=== PATIENT | male | born 1960 | race Caucasian/White ===

== ENCOUNTER 2019-07-22 11:28 | Inpatient (IN) | payer MEDICARE, MEDICAID, OTHER, SELFPAY ==
[2019-07-22] VITALS (7 sets, daily range): BP systolic 135–152; BP diastolic 71–94; PULSE 81–106; RESP 16–18; TEMP 36.6–37.4; O2SAT 95–99; BMI 29.3
--- NOTE | 2019-07-22 11:41 | ED.VIS.GEN ---
History of Present Illness Chief Complaint: Substance Abuse Detail of Chief Complaint: Requesting detox from alcohol Informant: Patient Onset: - - Street of alcohol use since age of 14 Context: Gradual Onset Timing: Continuous Quality: Consumes 3 25 ounce beer cans a day Location: Home Current Severity: Moderate Maximum Severity: Moderate Worsened by: DUI past holiday Relieved by: Nothing Associated Symptoms: Patient states he is recluse Narrative: Patient is a 58-year-old male who lives alone and admits to drinking on average 325 ounce beer cans per day. He states he was doing well had not had a DUI per 25 years. He states this past holiday season he went out to [facility]. He was arrested for DUI. He contacted Kelsey at [facility] who recommended he come to the emergency department for detox and she would see him during his hospital stay. He is on disability. He has history of chronic leg pain. He was on Lyrica. He developed problems allergies to Lyrica and Neurontin. He also informed that he is a vet. He denies headache. He denies ocular, visual auditory symptoms. Denies trouble with speech or swallowing. He denies cardiac respirations. He denies GI symptoms and significantly denies black or maroon stool. Denies bruising easily. Prior similar symptoms: Yes Recent Illness/Hospitalization: No - Past Medical History (1) Alcoholism /alcohol abuse Status: Acute Past Medical History - Allergies and Home Meds Allergies/Adverse Reactions: Allergies gabapentin Allergy (Verified 07/22/19 11:29) Hives pregabalin [From Lyrica] Allergy (Verified 07/22/19 11:29) Hives Primary Care Physician: NOT,DEFINED [NON-STAFF] - Prior records reviewed: Yes Surgical History: noncontributory Lives: Alone Smoking Status: Former smoker Alcohol: Heavy Drugs: None Review of Systems General: Denies: Chills, Fever, Sweats Eyes: Denies: Visual changes - bilaterally, Blurred Vision - bilaterally, Diplopia ENT: Denies: Rhinorrhea, Sore throat Cardiovascular: Denies: Chest pain, Palpitations Respiratory: Denies: Dyspnea, Cough, Dyspnea on exertion Gastrointestinal: Denies: Abdominal pain, Nausea, Vomiting, Diarrhea, Constipation, Melena, Hematochezia Genitourinary: Denies: Dysuria, Hematuria, Frequency Musculoskeletal: Denies: Myalgias, Arthralgias, Neck pain, Back pain, Swelling, Extremity Pain Skin: Denies: Rash, Abrasions, Wounds Neurological: Denies: Headache, Weakness, Numbness Endocrine: Denies: Polyuria, Polydipsia Hematologic: Denies: Easy bruising, Easy bleeding Allergy: Denies: Uticaria Physical Exam Vital Signs/Narrative: Vital Signs Temp Pulse Resp BP Pulse Ox 07/22/19 11:30 98 F 89 16 152/86 H 98 Inital Vital Signs reviewed: Yes General: Well nourished, Well developed, Obese Head: Normocephalic, Atraumatic. Negative for: Trauma, Tenderness Eyes: Perrl, EOMI. Negative for: Pale conjunctiva, Scleral icterus ENT: Moist mucous membranes, No rhinorrhea Neck: Supple, Nontender Cardiovascular: Regular rate, Regular rhythm, No murmurs, Normal S1, Normal S2 Respiratory: No distress, CTA bilaterally, Chest nontender Abdomen: Soft, Nontender, Nondistended, Normal bowel sounds Rectal: Deferred Back: Nontender Extremities: Nontender, No edema Skin: Normal color, No rash, No Trauma. Negative for: Cyanosis, Diaphoresis, Jaundice Neurological: Alert, Oriented x3, Cranial nerves II-XII grossly intact, Normal Strength, Normal Sensation, Normal DTR - There is no clonus or Babinski sign. DTR 2+ and symmetric Psychological: Normal affect Diagnostic/Tx/Re-eval Laboratory Results 07/22/19 07/22/19 07/22/19 12:10 12:10 12:10 WBC 5.8 RBC 5.05 Hgb 15.6 Hct 46.5 MCV 92.1 MCH 30.9 MCHC 33.5 RDW Std Deviation 41.9 RDW Coeff of Maren 12.3 Plt Count 262 MPV 9.2 PT 13.2 INR 1.0 Sodium 136 Potassium 3.8 Chloride 103 Carbon Dioxide 25.0 Anion Gap 8 BUN 5 L Creatinine 0.70 Estim Creat Clear Calc 111.29 Est GFR (MDRD) Af Amer 148 Est GFR (MDRD) Non-Af 122 BUN/Creatinine Ratio 7.1 L Glucose 99 Calcium 9.0 Total Bilirubin 0.60 AST 53 H ALT 37 Alkaline Phosphatase 118 H Total Protein 7.6 Albumin 3.9 Globulin 3.7 Albumin/Globulin Ratio 1.1 Ethyl Alcohol 07/22/19 12:10 WBC RBC Hgb Hct MCV MCH MCHC RDW Std Deviation RDW Coeff of Maren Plt Count MPV PT INR Sodium Potassium Chloride Carbon Dioxide Anion Gap BUN Creatinine Estim Creat Clear Calc Est GFR (MDRD) Af Amer Est GFR (MDRD) Non-Af BUN/Creatinine Ratio Glucose Calcium Total Bilirubin AST ALT Alkaline Phosphatase Total Protein Albumin Globulin Albumin/Globulin Ratio Ethyl Alcohol 197.0 Blood work is remarkable and alcohol of 197. He does not have a coagulopathy. Liver enzymes are essentially unremarkable. - Medical Decision Making Appropriate tests were obtained to assess for liver dysfunction, anemia electrolyte abnormality. ED Disposition - Plan for ED Patient: Disposition: Home or Assisted Living Diagnosis: Alcoholism /alcohol abuse, Admitted to substance misuse detoxification center Referrals: NOT,DEFINED [NON-STAFF] -
--- NOTE | 2019-07-22 11:53 | CM.ED ---
Addendum entered by Heydi Nazario 07/22/19 12:35: Confirming with patient that patient did in fact speak with Kelsey at [facility] and is seeking detox from Alcohol. Original Note: Social Work Telephone call to Kelsey at [facility] to confirm patient arriving to the ED, voicemail left requesting a return phone call for patient details. Miguel KAUR, KEVIN
[2019-07-22 12:28] LABS: Hematocrit 46.5 % (40-54); Hemoglobin 15.6 g/dL (13.0-16.5); Mean Corp Hgb Conc 33.5 g/dL (32-36); Mean Corpuscular Hgb 30.9 pg (27.0-32.0); Mean Corpuscular Volume 92.1 fL (80-94); Mean Platelet Vol. 9.2 fl (6.2-12.0); Platelet Count 262 K/mm3 (150-450); RBC Distribution Width CV 12.3 % (11.6-14.6); RBC Distribution Width SD 41.9 fl (35.1-43.9); Red Blood Count 5.05 M/mm3 (4.6-6.2); White Blood Count 5.8 K/mm3 (4.4-11.0)
--- NOTE | 2019-07-22 12:34 | ED.RN ---
LEFT A MESSAGE WITH [facility] [phone] EXT. [phone]
[2019-07-22 12:46] LABS: ALB/GLOB Ratio 1.1 RATIO (0.9-2.4); AST(SGOT) 53 U/L (15-37); Alanine Aminotransfer ALT/SGPT 37 U/L (16-61); Albumin, Serum 3.9 g/dL (3.2-5.0); Alkaline Phosphatase 118 U/L (45-117); Anion Gap 8 (5-15); BUN 5 mg/dL (7-18); BUN/Creat Ratio 7.1 RATIO (10-20); Chloride 103 mmol/L (98-107); EST Glomerular Filtration Rate 122 mL/min (>60); Est Glom Filt Rate - Afr Amer 148 mL/min (>60); Estimated Creatinine Clearance 111.29 ml/min; Globulin 3.7 g/dL (2.2-4.2); Glucose 99 mg/dL (74-106); Potassium 3.8 mmol/L (3.5-5.1); Protein, Total 7.6 g/dL (6.4-8.2); Prothrombin Time (Protime)PT. 13.2 SECONDS (11.7-14.9); Sodium Level 136 mmol/L (136-145)
--- NOTE | 2019-07-22 14:19 | HP.PCM_ITS ---
Problem List (1) Alcohol withdrawal Status: Acute Qualifiers: Complication of substance-induced condition: with perceptual disturbance Qualified Code(s): F10.232 - Alcohol dependence with withdrawal with perceptual disturbance (2) Tobacco use Status: Chronic (3) Anxiety Status: Chronic (4) Obesity Status: Chronic Qualifiers: Obesity type: due to excess calories Obesity classification: adult class 1 (BMI 30 - 34.9) Serious obesity comorbidity presence: unspecified whether serious comorbidity present Body mass index: BMI 30.0-30.9 Qualified Code(s): E66.09 - Other obesity due to excess calories; Z68.30 - Body mass index (BMI) 30.0-30.9, adult (5) Chronic pain syndrome Status: Chronic History of Present Illness Date of Admission: 07/22/19 Chief Complaint: Acute EtOH Withdrawal The patient is a 58 y/o M w/ PMHx: Tobacco use, Chronic leg pain, Anxiety, EtOH Abuse (at last 3-25 ounce cans beer daily), Hx DUI now x 2 most recently this past holiday with 180 recommendation for evaluation at the [facility] ED for detoxification who actively now presents to the [facility] ED on 07/22/19 w/ noted acute EtOH withdrawal, onset starting on day of ED presentation following last EtOH intake on day of ED presentation at 7 am with onset of nausea, tremors, agitation, tactile disturbances. Patient interested in attaining sober status and notes he recently obtained his 2nd DUI. He notes the first was remotely and he drank heavily and drove during the recent holidays. Work-up in the ED included T 98, heart rate 89, BP 152/86, respiratory rate 16, 98% on room air, unremarkable CBC, unremarkable coags, CMP with AST/ALT 53/37, alk phos 118 alcohol level 197. In the ED patient ministered no medications. Past Medical History Past Medical History (Chronic Problems): Chronic Problems Tobacco use (Chronic) Anxiety (Chronic) Obesity (Chronic) Chronic pain syndrome (Chronic) Allergies gabapentin Allergy (Verified 07/22/19 11:29) Hives pregabalin [From Lyrica] Allergy (Verified 07/22/19 11:29) Hives Home Medications: Ambulatory Orders Medication Instructions Recorded Albuterol IH (ProAir) [Proair Hfa] 2 puff INHALATION Q4H PRN 07/22/19 Buspirone HCl 10 mg PO BID 07/22/19 Multivitamins,Therapeutic 1 tab PO DAILY 07/22/19 [Multivitamin] Oxycodone HCl 10 mg PO Q6H PRN PRN 07/22/19 Surgical History: - - Right arm surgery. Psychiatric History: Anxiety Lives: Alone Smoking Status: Current every day smoker - Patient with ongoing cigarette tobacco usage of approximately 1 pack/day. Tobacco Use: Cigarettes Alcohol: Heavy - Patient drinks usually at least 3, 25 ounce beers daily. Drugs: None - *Family History Maternal History Items: - - Patient denies any market maternal or paternal family history including heart disease, diabetes, cancer. Paternal History Items: - - Patient denies any market maternal or paternal family history including heart disease, diabetes, cancer. Review of Systems Constitutional: Reports: Malaise, Weakness, Fatigue. Denies: Anorexia, Chills, Fever, Weight Change HEENT: Denies: Head Aches, Sinus Congestion, Sinus Drainage Cardiovascular: Denies: Chest Pain, Palpitations Respiratory: Denies: Cough, Shortness of breath at rest, Sputum production Gastrointestinal: Denies: Abdominal Pain, Nausea, Vomiting Genitourinary: Denies: Dysuria Musculoskeletal: Reports: Joint Pain, Leg Pain. Denies: Joint Tenderness Skin: Denies: Rash, Wounds Neurological: Reports: Tremor. Denies: Focal weakness, Numbness, Tingling Psychiatric: Reports: Anxiety. Denies: Depression, Homicidal Ideations, Suicidal Ideations Hematologic/ Lymphatic: Reports: Easy Bruising, Easy Bleeding VTE Information - Inpt Only VTE Present on Admission: No VTE Mechan Device Prophylaxis: None VTE Pharm Prophylaxis ordered?: No Reason prophylaxis not ordered:: Treatment Not Indicated Patient Problems: Active and Suspected Problems Alcoholism /alcohol abuse (Acute) Admitted to substance misuse detoxification center (Acute) Alcohol withdrawal (Acute) Subjective: Seated upright in the ED bed, mildly fatigued appearance, irritable, tremors present, no acute distress. Objective: Physical Examination: General: awake, alert, oriented x 3 and currently cooperative, seated upright in the ED bed, mildly irritable, mild tremors present. Skin: normal color, turgor, no icterus, cyanosis. HEENT: AT/NC, EOMI, PERRLA, mildly dry MM, no carotid bruits or JVD noted. Lungs: CTA bilaterally, moderate effort, moderate decrease BL bases, no rales, ronchi or wheezing. Heart: Mildly tachycardic with regular rhythm; no gallop, rub audible. Abdomen: soft, obese, NTTP, ND, normal BS, unable to discern any HM. Extremities: no cyanosis, clubbing, or edema. Neurological: patient awake, alert, oriented x 3; cognitive function appears suspected baseline intact; pupils equally reactive to light and accomodation; cranial nerves II-XII grossly normal, moving all 4 extremities, no focal deficits, strength mild to moderately global decrease secondary to acute presentation. Psychiatric: affect appears irritable, no acute evidence of depressive or anxiety feelings. - Physical Exam Vitals/I&O's: Vital Signs Temp Pulse Resp BP Pulse Ox 98 F 84 16 138/77 H 98 07/22/19 11:30 07/22/19 13:39 07/22/19 13:39 07/22/19 13:39 07/22/19 13:39 Oxygen Delivery Method Room Air Weight: 193 lb Body Mass Index (BMI) 29.3 Laboratory Results 07/22/19 12:10: WBC 5.8, RBC 5.05, Hgb 15.6, Hct 46.5, MCV 92.1, MCH 30.9, MCHC 33.5, RDW Std Deviation 41.9, RDW Coeff of Maren 12.3, Plt Count 262, MPV 9.2 07/22/19 12:10: PT 13.2, INR 1.0 07/22/19 12:10: Sodium 136, Potassium 3.8, Chloride 103, Carbon Dioxide 25.0, Anion Gap 8, BUN 5 L, Creatinine 0.70, Estim Creat Clear Calc 111.29, Est GFR (MDRD) Af Amer 148, Est GFR (MDRD) Non-Af 122, BUN/Creatinine Ratio 7.1 L, Glucose 99, Calcium 9.0, Total Bilirubin 0.60, AST 53 H, ALT 37, Alkaline Phosphatase 118 H, Total Protein 7.6, Albumin 3.9, Globulin 3.7, Albumin/Globulin Ratio 1.1 07/22/19 12:10: Ethyl Alcohol 197.0 Assessment/Plan All Active Problems Alcoholism /alcohol abuse (Acute) Admitted to substance misuse detoxification center (Acute) Alcohol withdrawal (Acute) The patient is a 58 y/o M w/ PMHx: Chronic leg pain, Anxiety, EtOH Abuse, Hx DUI now x 2 most recently this past holiday with 180 recommendation for evaluation at the [facility] ED for detoxification who actively now presents to the [facility] ED on 07/22/19 w/ noted acute EtOH withdrawal. 1. Acute EtOH Withdrawal: Will admit to [facility], routine labs obtained in the ED, ethyl alcohol level upon presentation 197 but functional, ambulatory and oriented, will initiate on phenobarbital taper protocol with PRN breakthrough crossover CIWA with Ativan in addition to PRN agents including Bentyl, Vistaril, IV fluids, antiemetics, Tylenol. Will consult case management and continue with [facility] services to assist in patient successful alcohol detoxification as well as for assistance for transition to next level of rehabilitation care. Mag, phos pending. 2. Anxiety: We will continue patient home BuSpar regimen although may need to hold if sedate given acute presentation with an sedated regimen. 3. Chronic pain syndrome: We will continue patient home chronic oxycodone regimen. 4. GERD: Maintain on famotidine. 5. Obesity: Weight loss and lifestyle changes encouraged. 6. Tobacco Abuse: Encouraged cessation, inpatient consultation per RT, NR if desired. 7. DVT prophylaxis: Low risk, encourage ambulation. Code Visit Inpatient E&M: 16565 Init Hosp L3
--- NOTE | 2019-07-22 17:12 | NURSING ---
Pt refusing to have IV placed. Dr Miner aware.
[2019-07-22 17:20] LABS: Magnesium 2.1 mg/dL (1.6-2.6); Phosphorus 2.3 mg/dL (2.5-4.9)
[2019-07-22] MEDS: Phenobarbital 32.4 MG Tablet PO ×2 (17:33→21:45)
[2019-07-22] MEDS: Methocarbamol 750 MG Tablet PO (17:34)
[2019-07-22] MEDS: Folic Acid 1 MG Tablet PO (17:34)
[2019-07-22] MEDS: Multivitamins,Ther W-Minerals Tablet 1 TABLET PO (17:34)
[2019-07-22] MEDS: oxyCODONE 5 MG Tablet 10 MG PO (17:34)
[2019-07-22] MEDS: Thiamine Hydrochloride 100 MG Tablet PO (18:42)
[2019-07-22 19:21] LABS: Bedside Glucose 124 mg/dL (70-110)
[2019-07-22] MEDS: LORazepam 1 MG Tablet 2 MG PO (20:02)
[2019-07-22] MEDS: Ibuprofen 600 MG Tablet PO (20:02)
--- NOTE | 2019-07-22 20:07 | CM.ED ---
Social Work Telephone call from Kelsey at [facility]. Kelsey reporting plan to come and complete assessment with patient tomorrow. Voicemail left for VINCENT Pink, JUAN Nazario MSW, KEVIN
[2019-07-22] MEDS: hydrOXYzine PAM 25 MG Capsule 50 MG PO (21:36)
[2019-07-22] MEDS: busPIRone 5 MG Tablet 10 MG PO (21:36)
[2019-07-22] MEDS: traZODone 50 MG Tablet PO (21:36)
[2019-07-22] MEDS: Famotidine 20 MG Tablet PO (21:36)
[2019-07-22] MEDS: Na Biphos/Potassium Phosphate PACKET 1 PACKET PO (21:45)
[2019-07-22 22:21] LABS: Bacteria 0 SEEN /hpf (None Seen); Mucous, Urine 0 SEEN /hpf (<or=2+); Red Blood Cells-Urine 0 SEEN /hpf (0-5); White Blood Cells 0 SEEN /hpf (0-5)
[2019-07-22 22:23] LABS: Color, Urine Yellow (Yellow); Glucose, Dipstick Normal (Normal); Ketone-Dipstick Negative (Negative); Leukocyte Esterase-Dipstick Negative /ul (Negative); Nitrite-Dipstick Negative (Negative); Occult Blood-Urine Negative /ul (Negative); Protein-Dipstick Negative (Negative); Urine Bilirubin Dipstick Negative (Negative); Urine Clarity Sl. Cloudy (Clear); Urine Urobilinogen Normal (Normal)
[2019-07-22 22:29] LABS: Squamous Epithelial Cells - UA 0-5 SEEN /hpf (0-5)
[2019-07-23] MEDS: Methocarbamol 750 MG Tablet PO ×2 (00:36→09:32)
[2019-07-23] MEDS: LORazepam 1 MG Tablet 2 MG PO ×2 (00:36→09:32)
[2019-07-23] MEDS: Tamsulosin HCl 0.4 MG Capsule PO ×2 (00:36→16:41)
[2019-07-23] MEDS: traZODone 50 MG Tablet PO ×2 (01:33→21:43)
[2019-07-23] MEDS: Phenobarbital 32.4 MG Tablet PO ×6 (01:35→21:03)
[2019-07-23 01:38] VITALS: BP 95/67; PULSE 97; RESP 18; TEMP 36.8; O2SAT 97
[2019-07-23] MEDS: hydrOXYzine PAM 25 MG Capsule 50 MG PO ×2 (05:12→13:27)
[2019-07-23] MEDS: Ibuprofen 600 MG Tablet PO (05:12)
[2019-07-23 09:19] VITALS: BP 128/82; PULSE 100; RESP 16; TEMP 36.4; O2SAT 97
[2019-07-23] MEDS: Na Biphos/Potassium Phosphate PACKET 1 PACKET PO ×4 (09:31→21:43)
[2019-07-23] MEDS: Famotidine 20 MG Tablet PO ×2 (09:31→21:43)
[2019-07-23] MEDS: Thiamine Hydrochloride 100 MG Tablet PO ×2 (09:32→16:41)
[2019-07-23] MEDS: Multivitamins,Ther W-Minerals Tablet 1 TABLET PO (09:32)
[2019-07-23] MEDS: Folic Acid 1 MG Tablet PO (09:32)
[2019-07-23] MEDS: Nystatin Powder 15gm Bottle 1 APPLIC TOPICAL ×2 (09:33→21:45)
[2019-07-23] MEDS: busPIRone 5 MG Tablet 10 MG PO ×2 (10:22→21:43)
--- NOTE | 2019-07-23 11:26 | ADDICTION ---
This engineering writer met with Mr. Franco to complete [facility] biopsychosocial assessment/ASAM assessment. Client signed CHRISTINA to allow [facility] and [facility] communication regarding his care. Mr. Franco meets DSM 5 criteria for Alcohol Use Disorder, Severe and ASAM criteria for medical withdrawal management. This engineering writer will send assessment via fax for hospital staff to add to client's chart.
--- NOTE | 2019-07-23 11:46 | PN_ITS ---
Patient Problems: Active and Suspected Problems Alcoholism /alcohol abuse (Acute) Admitted to substance misuse detoxification center (Acute) Alcohol withdrawal (Acute) Subjective: Patient was seen and examined today, he does not complain of any tremor or restlessness or nervousness. Patient was seen by 180 today in consultation for outpatient services when he is discharged. - Physical Exam Vitals/I&O's: Vital Signs Temp Pulse Resp BP Pulse Ox 97.5 F L 100 16 128/82 H 97 07/23/19 09:19 07/23/19 09:19 07/23/19 09:19 07/23/19 09:19 07/23/19 09:19 Oxygen Delivery Method Room Air Weight: 89.675 kg Body Mass Index (BMI) 30.0 Intake and Output for Last 24 Hours 07/21/19 07/22/19 07/23/19 23:59 23:59 23:59 Intake Total 3800 / 3800 800 / 800 Output Total 200 / 200 Balance 3600 / 3600 800 / 800 General: Alert, Oriented x3, Cooperative, No apparent distress, Well developed, Well nourished HEENT: Atraumatic, PERRLA, EOMI, Normocephalic Oral: Moist Mucosa Neck: Supple, No JVD, Trachea Midline, Thyroid Normal Size and Texture Lungs: Clear to auscultation, Normal air movement, No rhonchi, No wheeze, No rales Cardiovascular: Regular rate, Regular Rhythm, Normal S1, Normal S2, No murmurs, No Ectopic Activity, PMI Normal, No rub noted, No Gallop Abdomen: Bowel Sounds Present, Soft, Non Tender, Non-Distended Extremities: No clubbing, No cyanosis, No edema, Capillary Refill Less than 3 Seconds Skin: No rashes, No breakdown Musculoskeletal: No Tenderness to Palpation of Joints or Extremities Neurological: Cranial nerves II-XII grossly intact, Neuro grossly intact, Sensory exam intact to light touch and pain, Coordination normal Psych/Mental Status: Normal Affect, Appropriate, Alert and oriented to time, place, person, mood and affect Laboratory Results 07/22/19 12:10: WBC 5.8, RBC 5.05, Hgb 15.6, Hct 46.5, MCV 92.1, MCH 30.9, MCHC 33.5, RDW Std Deviation 41.9, RDW Coeff of Maren 12.3, Plt Count 262, MPV 9.2 07/22/19 12:10: PT 13.2, INR 1.0 07/22/19 12:10: Sodium 136, Potassium 3.8, Chloride 103, Carbon Dioxide 25.0, Anion Gap 8, BUN 5 L, Creatinine 0.70, Estim Creat Clear Calc 111.29, Est GFR (MDRD) Af Amer 148, Est GFR (MDRD) Non-Af 122, BUN/Creatinine Ratio 7.1 L, Glucose 99, Calcium 9.0, Total Bilirubin 0.60, AST 53 H, ALT 37, Alkaline Phosphatase 118 H, Total Protein 7.6, Albumin 3.9, Globulin 3.7, Albumin/Globulin Ratio 1.1 07/22/19 12:10: Ethyl Alcohol 197.0 07/22/19 12:10: Phosphorus 2.3 L, Magnesium 2.1 07/22/19 18:53: POC Glucose 124 H 07/22/19 21:50: Urine Color Yellow, Urine Clarity Sl. Cloudy, Urine pH 7.0, Ur Specific Leonard 1.010, Urine Protein Negative, Urine Glucose (UA) Normal, Urine Ketones Negative, Urine Occult Blood Negative, Urine Nitrite Negative, Urine Bilirubin Negative, Urine Urobilinogen Normal, Ur Leukocyte Esterase Negative, Urine RBC 0 SEEN, Urine WBC 0 SEEN, Ur Squamous Epith Cells 0-5 SEEN, Urine Bacteria 0 SEEN, Urine Mucus 0 SEEN Current Medications Acetaminophen (Tylenol) 500 mg PO Q4H PRN PRN PRN Reason: Temp > 100.4 F Al Hydroxide/Mg Hydroxide (Mylanta Ii) 30 ml PO Q6H PRN PRN PRN Reason: dyspesia Albuterol Sulfate (Ventolin Aerosols) 2.5 mg INHALATION Q2H PRN PRN PRN Reason: Shortness of Breath/Wheezing Bisacodyl (Dulcolax) 10 mg RECTAL DAILY PRN PRN Reason: Constipation Buspirone HCl (Buspar) 10 mg PO BID [facility] Last Admin: 07/23/19 10:22 Dose: 10 mg Documented by: Dicyclomine HCl (Bentyl) 20 mg PO Q6H PRN PRN PRN Reason: abdominal discomfort Famotidine (Pepcid) 20 mg PO BID [facility] Last Admin: 07/23/19 09:31 Dose: 20 mg Documented by: Folic Acid (Folic Acid) 1 mg PO DAILYCM [facility] Stop: 07/25/19 08:01 Last Admin: 07/23/19 09:32 Dose: 1 mg Documented by: Glucagon () 1 mg IM .X1 PRN PRN Reason: Hypoglycemia Hydroxyzine Pamoate (Vistaril Pamoate Capsule) 50 mg PO Q6H PRN PRN PRN Reason: Mild Anxiety (score 1/3) Last Admin: 07/23/19 05:12 Dose: 50 mg Documented by: Dextrose (Dextrose 10%-Water) 250 mls @ 999 mls/hr IV .Q16M PRN; Protocol PRN Reason: HYPOGLYCEMIA Ibuprofen (Motrin) 600 mg PO Q8H PRN PRN PRN Reason: Pain Score 1-5/10 Last Admin: 07/23/19 05:12 Dose: 600 mg Documented by: Loperamide HCl (Imodium) 2 - 4 mg PO UD PRN PRN Reason: LOOSE STOOLS Lorazepam (Ativan) 2 mg PO Q2H PRN PRN; Protocol PRN Reason: CIWA score > 8 but <15 Last Admin: 07/23/19 09:32 Dose: 2 mg Documented by: Lorazepam (Ativan) 2 mg PO UD PRN; Protocol PRN Reason: CIWA score >/=15. Lorazepam (Ativan) 2 mg IV Q2H PRN PRN; Protocol PRN Reason: CIWA score > 8 but <15 Lorazepam (Ativan) 2 mg IV UD PRN; Protocol PRN Reason: CIWA score >/=15. Lorazepam (Ativan) 2 mg IV X1 PRN PRN Reason: Seizure Methocarbamol (Methocarbamol) 750 mg PO Q6H PRN PRN PRN Reason: Muscle Aches Last Admin: 07/23/19 09:32 Dose: 750 mg Documented by: Multivitamins/Minerals (Multivitamin With Minerals (Bkc)) [facility] Last Admin: 07/23/19 09:32 Dose: 1 tablet Documented by: Nicotine (Nicoderm Cq (Pbkc)) 21 mg TRANSDERM. DAILY [facility] Last Admin: 07/23/19 09:31 Dose: 21 mg Documented by: Nystatin (Mycostatin Powder) 1 applic TOPICAL BID [facility]; Protocol Last Admin: 07/23/19 09:33 Dose: 1 applicatio Documented by: Ondansetron HCl (Zofran Odt) 4 mg PO Q6H PRN PRN PRN Reason: NAUSEA Oxycodone HCl (Oxyir) 10 mg PO Q6H PRN PRN PRN Reason: Pain Score 1-10/FEVER Last Admin: 07/22/19 17:34 Dose: 10 mg Documented by: Phenobarbital (Phenobarbital) 97.2 mg PO Q4H [facility]; Taper Stop: 07/27/19 01:14 Last Admin: 07/23/19 09:32 Dose: 97.2 mg Documented by: Potassium Phos/Sodium Phos (Neutra-Phos Packet) 1 packet PO 4X/DAY [facility] Last Admin: 07/23/19 09:31 Dose: 1 packet Documented by: Senna (Senokot) 1 tablet PO QHS PRN PRN Reason: Constipation Sodium Chloride () 10 - 40 ml IV UD PRN PRN Reason: SALINE FLUSH Tamsulosin HCl (Flomax) 0.4 mg PO DAILY@1730 [facility] Last Admin: 07/23/19 00:36 Dose: 0.4 mg Documented by: Thiamine HCl (Vitamin B1) 100 mg PO BIDCM [facility] Stop: 07/25/19 08:01 Last Admin: 07/23/19 09:32 Dose: 100 mg Documented by: Trazodone HCl (Desyrel) 50 mg PO QHS [facility] Last Admin: 07/23/19 01:33 Dose: 50 mg Documented by: Medical Necessity - Tobacco Use Smoking Status: Current every day smoker Tobacco Use: Cigarettes Assessment/Plan All Active Problems Alcoholism /alcohol abuse (Acute) Admitted to substance misuse detoxification center (Acute) Alcohol withdrawal (Acute) #1 acute alcohol withdrawal-patient will continue on his present medications #2 alcoholism #3 chronic pain syndrome #4 chronic anxiety disorder-patient will remain on BuSpar Code Visit Inpatient E&M: 78939 Subs Hosp L2
--- NOTE | 2019-07-23 12:06 | CASEMGMT ---
Social Work Phone call from Kelsey at [facility] who states one of the [facility] nurses will come to see pt on Tuesday 07/25 for a face to face visit. Kelsey is uncertain if they can accept pt to their program due to comorbidities. Decision will be made on Friday after face to face is complete. JUAN Mazariegos
[2019-07-23 13:22] VITALS: BP 118/78; PULSE 98; RESP 16; TEMP 36.6; O2SAT 99
--- NOTE | 2019-07-23 14:16 | CASEMGMT ---
MARISEL PETERSON completed the [facility] decl[facility] and patient prefers to stay at [facility] and have MCR/primary insurance billed. MARISEL PETERSON [facility] with [facility]. MARISEL PETERSON provided patient with copy of signed form. Signed form filled in chart.
[2019-07-23 16:22] VITALS: BP 132/81; PULSE 83; RESP 20; TEMP 36.6; O2SAT 97
[2019-07-23] MEDS: oxyCODONE 5 MG Tablet 10 MG PO (16:41)
[2019-07-23 21:05] VITALS: BP 126/86; PULSE 95; RESP 20; TEMP 36.4; O2SAT 97
[2019-07-24 00:36] VITALS: BP 137/88; PULSE 93; RESP 18; TEMP 37.2; O2SAT 98
[2019-07-24] MEDS: Dicyclomine 10 MG Capsule 20 MG PO (00:44)
[2019-07-24] MEDS: Methocarbamol 750 MG Tablet PO ×2 (00:44→23:33)
[2019-07-24] MEDS: Phenobarbital 32.4 MG Tablet PO ×6 (01:23→21:14)
[2019-07-24 05:30] VITALS: BP 116/76; PULSE 78; RESP 18; TEMP 36.6; O2SAT 97
[2019-07-24 07:32] VITALS: O2SAT 94
[2019-07-24] MEDS: Na Biphos/Potassium Phosphate PACKET 1 PACKET PO ×4 (07:58→21:16)
[2019-07-24] MEDS: busPIRone 5 MG Tablet 10 MG PO ×2 (07:59→21:15)
[2019-07-24] MEDS: Multivitamins,Ther W-Minerals Tablet 1 TABLET PO (07:59)
[2019-07-24] MEDS: Folic Acid 1 MG Tablet PO (07:59)
[2019-07-24] MEDS: Famotidine 20 MG Tablet PO ×2 (07:59→21:15)
[2019-07-24] MEDS: Thiamine Hydrochloride 100 MG Tablet PO ×2 (07:59→16:00)
[2019-07-24] MEDS: Nystatin Powder 15gm Bottle 1 APPLIC TOPICAL ×2 (08:00→21:16)
[2019-07-24 09:52] VITALS: BP 113/79; PULSE 95; RESP 20; TEMP 36.5; O2SAT 99
--- NOTE | 2019-07-24 12:12 | PN_ITS ---
Patient Problems: Active and Suspected Problems Alcoholism /alcohol abuse (Acute) Admitted to substance misuse detoxification center (Acute) Alcohol withdrawal (Acute) Subjective: Patient was seen and examined today, he has no complaints of any nervousness, tremor, or diaphoresis. I have asked nursing today to allow the patient to walk in the caballero today, he has been in his room since admission. Objective: General: Alert, Oriented x3, Cooperative, No apparent distress, Well developed, Well nourished HEENT: Atraumatic, PERRLA, EOMI, Normocephalic Oral: Moist Mucosa Neck: Supple, No JVD, Trachea Midline, Thyroid Normal Size and Texture Lungs: Clear to auscultation, Normal air movement, No rhonchi, No wheeze, No rales Cardiovascular: Regular rate, Regular Rhythm, Normal S1, Normal S2, No murmurs, No Ectopic Activity, PMI Normal, No rub noted, No Gallop Abdomen: Bowel Sounds Present, Soft, Non Tender, Non-Distended Extremities: No clubbing, No cyanosis, No edema, Capillary Refill Less than 3 Seconds Skin: No rashes, No breakdown Musculoskeletal: No Tenderness to Palpation of Joints or Extremities Neurological: Cranial nerves II-XII grossly intact, Neuro grossly intact, Sensory exam intact to light touch and pain, Coordination normal Psych/Mental Status: Normal Affect, Appropriate, Alert and oriented to time, place, person, mood and affect - Physical Exam Vitals/I&O's: Vital Signs Temp Pulse Resp BP Pulse Ox 97.7 F L 95 20 H 113/79 99 07/24/19 09:52 07/24/19 09:52 07/24/19 09:52 07/24/19 09:52 07/24/19 09:52 Oxygen Delivery Method Room Air Weight: 89.675 kg Body Mass Index (BMI) 30.0 Intake and Output for Last 24 Hours 07/22/19 07/23/19 07/24/19 23:59 23:59 23:59 Intake Total 3800 / 3800 3200 / 3200 660 / 660 Output Total 200 / 200 1450 / 1450 300 / 300 Balance 3600 / 3600 1750 / 1750 360 / 360 Current Medications Acetaminophen (Tylenol) 500 mg PO Q4H PRN PRN PRN Reason: Temp > 100.4 F Al Hydroxide/Mg Hydroxide (Mylanta Ii) 30 ml PO Q6H PRN PRN PRN Reason: dyspesia Albuterol Sulfate (Ventolin Aerosols) 2.5 mg INHALATION Q2H PRN PRN PRN Reason: Shortness of Breath/Wheezing Bisacodyl (Dulcolax) 10 mg RECTAL DAILY PRN PRN Reason: Constipation Buspirone HCl (Buspar) 10 mg PO BID [facility] Last Admin: 07/24/19 07:59 Dose: 10 mg Documented by: Dicyclomine HCl (Bentyl) 20 mg PO Q6H PRN PRN PRN Reason: abdominal discomfort Last Admin: 07/24/19 00:44 Dose: 20 mg Documented by: Famotidine (Pepcid) 20 mg PO BID [facility], [facility] Last Admin: 07/24/19 07:59 Dose: 20 mg Documented by: [facility] Acid) [facility] Stop: 07/25/19 08:01 Last Admin: 07/24/19 07:59 Dose: 1 mg Documented by: Glucagon () 1 mg IM .X1 PRN PRN Reason: Hypoglycemia Hydroxyzine Pamoate (Vistaril Pamoate Capsule) 50 mg PO Q6H PRN PRN PRN Reason: Mild Anxiety (score 1/3) Last Admin: 07/23/19 13:27 Dose: 50 mg Documented by: Dextrose (Dextrose 10%-Water) 250 mls @ 999 mls/hr IV .Q16M PRN; Protocol PRN Reason: HYPOGLYCEMIA Ibuprofen (Motrin) 600 mg PO Q8H PRN PRN PRN Reason: Pain Score 1-5/10 Last Admin: 07/23/19 05:12 Dose: 600 mg Documented by: Loperamide HCl (Imodium) 2 - 4 mg PO UD PRN PRN Reason: LOOSE STOOLS Lorazepam (Ativan) 2 mg PO Q2H PRN PRN; Protocol PRN Reason: CIWA score > 8 but <15 Last Admin: 07/23/19 09:32 Dose: 2 mg Documented by: Lorazepam (Ativan) 2 mg PO UD PRN; Protocol PRN Reason: CIWA score >/=15. Lorazepam (Ativan) 2 mg IV Q2H PRN PRN; Protocol PRN Reason: CIWA score > 8 but <15 Lorazepam (Ativan) 2 mg IV UD PRN; Protocol PRN Reason: CIWA score >/=15. Lorazepam (Ativan) 2 mg IV X1 PRN PRN Reason: Seizure Methocarbamol (Methocarbamol) 750 mg PO Q6H PRN PRN PRN Reason: Muscle Aches Last Admin: 07/24/19 00:44 Dose: 750 mg Documented by: Multivitamins/Minerals (Multivitamin With Minerals (Bkc)) [facility] Last Admin: 07/24/19 07:59 Dose: 1 tablet Documented by: Nicotine (Nicoderm Cq (Pbkc)) 21 mg TRANSDERM. DAILY [facility] Last Admin: 07/24/19 07:58 Dose: 21 mg Documented by: Nystatin (Mycostatin Powder) 1 applic TOPICAL BID [facility], [facility]; Protocol Last Admin: 07/24/19 08:00 Dose: 1 applicatio Documented by: Ondansetron HCl (Zofran Odt) 4 mg PO Q6H PRN PRN PRN Reason: NAUSEA Oxycodone HCl (Oxyir) 10 mg PO Q6H PRN PRN PRN Reason: Pain Score 1-10/FEVER Last Admin: 07/23/19 16:41 Dose: 10 mg Documented by: Phenobarbital (Phenobarbital) 64.8 mg PO Q4H [facility], [facility]; Taper Stop: 07/27/19 01:14 Last Admin: 07/24/19 09:56 Dose: 64.8 mg Documented by: Potassium Phos/Sodium Phos (Neutra-Phos Packet) 1 packet PO 4X/DAY [facility] Last Admin: 07/24/19 07:58 Dose: 1 packet Documented by: Senna (Senokot) 1 tablet PO QHS PRN PRN Reason: Constipation Sodium Chloride () 10 - 40 ml IV UD PRN PRN Reason: SALINE FLUSH Tamsulosin HCl (Flomax) 0.4 mg PO DAILY@1730 [facility] Last Admin: 07/23/19 16:41 Dose: 0.4 mg Documented by: Thiamine HCl (Vitamin B1) [facility] Stop: 07/25/19 08:01 Last Admin: 07/24/19 07:59 Dose: 100 mg Documented by: Trazodone HCl (Desyrel) 50 mg PO QHS [facility] Last Admin: 07/23/19 21:43 Dose: 50 mg Documented by: Medical Necessity - Tobacco Use Smoking Status: Current every day smoker Tobacco Use: Cigarettes Assessment/Plan All Active Problems Alcoholism /alcohol abuse (Acute) Admitted to substance misuse detoxification center (Acute) Alcohol withdrawal (Acute) #1 acute alcohol withdrawal-patient will continue on his present medications #2 alcoholism-180 has talked to the patient, according to the patient, he will go there Friday after discharge. #3 chronic pain syndrome #4 chronic anxiety disorder-patient will remain on BuSpar I will increase the patient's activity level and have him walk in the caballero. Code Visit Inpatient E&M: 60952 Subs Hosp L2
[2019-07-24 15:58] VITALS: BP 128/77; PULSE 82; RESP 18; TEMP 36.8; O2SAT 97
[2019-07-24] MEDS: Tamsulosin HCl 0.4 MG Capsule PO (16:00)
[2019-07-24] MEDS: traZODone 50 MG Tablet PO (21:16)
[2019-07-24 21:19] VITALS: BP 132/88; PULSE 87; RESP 20; TEMP 36.7; O2SAT 97
[2019-07-24] MEDS: hydrOXYzine PAM 25 MG Capsule 50 MG PO (23:33)
[2019-07-25] VITALS (7 sets, daily range): BP systolic 120–141; BP diastolic 66–78; PULSE 80–87; RESP 14–18; TEMP 36.4–36.8; O2SAT 95–98
[2019-07-25] MEDS: Phenobarbital 32.4 MG Tablet PO ×4 (01:04→18:19)
[2019-07-25] MEDS: Famotidine 20 MG Tablet PO ×2 (09:01→22:09)
[2019-07-25] MEDS: Thiamine Hydrochloride 100 MG Tablet PO (09:02)
[2019-07-25] MEDS: Folic Acid 1 MG Tablet PO (09:02)
[2019-07-25] MEDS: Multivitamins,Ther W-Minerals Tablet 1 TABLET PO (09:02)
[2019-07-25] MEDS: Na Biphos/Potassium Phosphate PACKET 1 PACKET PO ×4 (09:06→22:09)
[2019-07-25] MEDS: busPIRone 5 MG Tablet 10 MG PO ×2 (09:06→22:09)
[2019-07-25] MEDS: Nystatin Powder 15gm Bottle 1 APPLIC TOPICAL ×2 (09:06→22:11)
[2019-07-25] MEDS: LORazepam 1 MG Tablet 2 MG PO (09:13)
[2019-07-25] MEDS: Methocarbamol 750 MG Tablet PO ×2 (09:13→20:14)
[2019-07-25] MEDS: oxyCODONE 5 MG Tablet 10 MG PO ×2 (09:13→18:20)
[2019-07-25] MEDS: Ibuprofen 600 MG Tablet PO (13:21)
--- NOTE | 2019-07-25 14:04 | PCM.PROGNOTE ---
Patient Problems: Active and Suspected Problems Alcoholism /alcohol abuse (Acute) Admitted to substance misuse detoxification center (Acute) Alcohol withdrawal (Acute) Subjective: Seen and examined today, he does not appear to be nervous or shaky at this time. Patient voices no complaints to this examiner - Physical Exam Vitals/I&O's: Vital Signs Temp Pulse Resp BP Pulse Ox 97.5 F L 80 14 124/78 H 98 07/25/19 13:13 07/25/19 13:13 07/25/19 13:13 07/25/19 13:13 07/25/19 13:13 Oxygen Delivery Method Room Air Weight: 89.675 kg Body Mass Index (BMI) 30.0 Intake and Output for Last 24 Hours 07/23/19 07/24/19 07/25/19 23:59 23:59 23:59 Intake Total 3200 / 3200 2660 / 3140 480 / 480 Output Total 1450 / 1450 2575 / 3225 800 / 800 Balance 1750 / 1750 85 / -85 -320 / -320 General: Alert, Oriented x3, Cooperative, No apparent distress, Well developed, Well nourished HEENT: Atraumatic, PERRLA, EOMI, Normocephalic Oral: Moist Mucosa Neck: Supple, No JVD, Trachea Midline, Thyroid Normal Size and Texture Lungs: Clear to auscultation, Normal air movement, No rhonchi, No wheeze, No rales Cardiovascular: Regular rate, Regular Rhythm, Normal S1, Normal S2, No murmurs, PMI Normal, No rub noted Abdomen: Bowel Sounds Present, Soft, Non Tender, Non-Distended Extremities: No clubbing, No cyanosis, No edema, Capillary Refill Less than 3 Seconds Skin: No rashes, No breakdown Musculoskeletal: No Tenderness to Palpation of Joints or Extremities Neurological: Cranial nerves II-XII grossly intact, Neuro grossly intact, Sensory exam intact to light touch and pain Psych/Mental Status: Normal Affect, Appropriate, Alert and oriented to time, place, person, mood and affect Current Medications Acetaminophen (Tylenol) 500 mg PO Q4H PRN PRN PRN Reason: Temp > 100.4 F Al Hydroxide/Mg Hydroxide (Mylanta Ii) 30 ml PO Q6H PRN PRN PRN Reason: dyspesia Albuterol Sulfate (Ventolin Aerosols) 2.5 mg INHALATION Q2H PRN PRN PRN Reason: Shortness of Breath/Wheezing Bisacodyl (Dulcolax) 10 mg RECTAL DAILY PRN PRN Reason: Constipation Buspirone HCl (Buspar) [address] [facility] Last Admin: 07/25/19 09:06 Dose: 10 mg Documented by: Dicyclomine HCl (Bentyl) 20 mg PO Q6H PRN PRN PRN Reason: abdominal discomfort Last Admin: 07/24/19 00:44 Dose: 20 mg Documented by: Famotidine (Pepcid) [address] [facility] Last Admin: 07/25/19 09:01 Dose: 20 mg Documented by: Glucagon () 1 mg IM .X1 PRN PRN Reason: Hypoglycemia Hydroxyzine Pamoate (Vistaril Pamoate Capsule) 50 mg PO Q6H PRN PRN PRN Reason: Mild Anxiety (score 1/3) Last Admin: 07/24/19 23:33 Dose: 50 mg Documented by: Dextrose (Dextrose 10%-Water) 250 mls @ 999 mls/hr IV .Q16M PRN; Protocol PRN Reason: HYPOGLYCEMIA Ibuprofen (Motrin) 600 mg PO Q8H PRN PRN PRN Reason: Pain Score 1-5/10 Last Admin: 07/25/19 13:21 Dose: 600 mg Documented by: Loperamide HCl (Imodium) 2 - 4 mg PO UD PRN PRN Reason: LOOSE STOOLS Lorazepam (Ativan) 2 mg PO Q2H PRN PRN; Protocol PRN Reason: CIWA score > 8 but <15 Last Admin: 07/25/19 09:13 Dose: 2 mg Documented by: Lorazepam (Ativan) 2 mg PO UD PRN; Protocol PRN Reason: CIWA score >/=15. Lorazepam (Ativan) 2 mg IV Q2H PRN PRN; Protocol PRN Reason: CIWA score > 8 but <15 Lorazepam (Ativan) 2 mg IV UD PRN; Protocol PRN Reason: CIWA score >/=15. Lorazepam (Ativan) 2 mg IV X1 PRN PRN Reason: Seizure Methocarbamol (Methocarbamol) 750 mg PO Q6H PRN PRN PRN Reason: Muscle Aches Last Admin: 07/25/19 09:13 Dose: 750 mg Documented by: Multivitamins/Minerals (Multivitamin With Minerals (Bkc)) [address] [facility] Last Admin: 07/25/19 09:02 Dose: 1 tablet Documented by: Nicotine (Nicoderm Cq (Pbkc)) [address] [facility] Last Admin: 07/25/19 09:06 Dose: 21 mg Documented by: Nystatin (Mycostatin Powder) [address] [facility]; Protocol Last Admin: 07/25/19 09:06 Dose: 1 applicatio Documented by: Ondansetron HCl (Zofran Odt) 4 mg PO Q6H PRN PRN PRN Reason: NAUSEA Oxycodone HCl (Oxyir) 10 mg PO Q6H PRN PRN PRN Reason: Pain Score 1-10/FEVER Last Admin: 07/25/19 09:13 Dose: 10 mg Documented by: Phenobarbital (Phenobarbital) 64.[address] [facility]; Taper Stop: 07/27/19 01:14 Last Admin: 07/25/19 13:21 Dose: 64.8 mg Documented by: Potassium Phos/Sodium Phos (Neutra-Phos Packet) 1 packet PO 4X/DAY [facility] Last Admin: 07/25/19 13:21 Dose: 1 packet Documented by: Senna (Senokot) 1 tablet PO QHS PRN PRN Reason: Constipation Sodium Chloride () 10 - 40 ml IV UD PRN PRN Reason: SALINE FLUSH Tamsulosin HCl (Flomax) 0.4 mg PO DAILY@1730 [facility] Last Admin: 07/24/19 16:00 Dose: 0.4 mg Documented by: Trazodone HCl (Desyrel) [address] [facility] Last Admin: 07/24/19 21:16 Dose: 50 mg Documented by: Medical Necessity - Tobacco Use Smoking Status: Current every day smoker Tobacco Use: Cigarettes Assessment/Plan All Active Problems Alcoholism /alcohol abuse (Acute) Admitted to substance misuse detoxification center (Acute) Alcohol withdrawal (Acute) #1 acute alcohol withdrawal-patient will continue on his present medications #2 alcoholism-180 has talked to the patient, according to the patient, he will go there Friday after discharge. #3 chronic pain syndrome #4 chronic anxiety disorder-patient will remain on BuSpar I have urged the patient to increase his ambulation Code Visit Inpatient E&M: 36296 Subs Hosp L2
[2019-07-25] MEDS: Tamsulosin HCl 0.4 MG Capsule PO (17:10)
[2019-07-25] MEDS: traZODone 50 MG Tablet PO (22:09)
[2019-07-26] MEDS: oxyCODONE 5 MG Tablet 10 MG PO (01:05)
[2019-07-26] MEDS: Phenobarbital 32.4 MG Tablet PO ×2 (01:27→07:05)
[2019-07-26 02:11] VITALS: BP 121/79; PULSE 88; RESP 16; TEMP 36.6; O2SAT 97
[2019-07-26] MEDS: hydrOXYzine PAM 25 MG Capsule 50 MG PO (03:41)
[2019-07-26 08:04] VITALS: BP 125/77; PULSE 81; RESP 18; TEMP 36.6; O2SAT 100
--- NOTE | 2019-07-26 09:25 | ADDICTION ---
This screen writer met with Mr. Franco to continue discussion regarding discharge planning. Client reports that he does not have discharge plans, although hospital staff reports that he will likely discharge today. This screen writer will collaborate with [facility] nurse regarding client's appropriateness for Residential treatment and potential timing on admission. Hospital SW was informed that Mr. Franco may not be appropriate for Residential treatment with [facility] and alternative plans may need to made for his discharge. Hospital staff shared that they believed that [facility] nurse would be coming to hospital for a face to face with patient. This screen writer is unaware of these plans but will speak with [facility] nurse upon arrival at office. This screen writer will communicate agency decision regarding client care with hospital social sciences instructor, Uma.
[2019-07-26] MEDS: Multivitamins,Ther W-Minerals Tablet 1 TABLET PO (09:32)
[2019-07-26] MEDS: busPIRone 5 MG Tablet 10 MG PO (09:35)
[2019-07-26] MEDS: Nystatin Powder 15gm Bottle 1 APPLIC TOPICAL (09:35)
[2019-07-26] MEDS: Na Biphos/Potassium Phosphate PACKET 1 PACKET PO (09:36)
[2019-07-26] MEDS: Famotidine 20 MG Tablet PO (09:37)
--- NOTE | 2019-07-26 11:10 | CASEMGMT ---
Addendum entered by Uma Strauss 07/26/19 14:45: SW continued to try to call [facility]. SW not able to connect with [facility] due to [facility] phone's not working. SW tried multiple times and different numbers with not being able to reach [facility]. SW in to speak with pt. SW introduced self and role. Pt states that he is not able to go to [facility] at discharge for residential as he is a fall risk. SW informed pt that he could still go to [facility] today and get linked up with a counselor or [facility] could continue to assist pt with either getting into residential or to a different agency. Pt states I just want to go home, [facility] is too far away for me, I just want to go home. Pt states he lives in [place]. SW informed pt that this worker can provide him with additional resources and pt can follow up with an agency that is local for him. Pt states that he needs a letter stating he is not able to go to residential due to his medical needs. SW informed pt that he will need to call Kelsey at [facility] who may be able to assist pt with getting letter. Pt states that he has Kelsey's number from [facility] and will be calling. Pt's CM through [facility] called and pt wanted this worker to speak with his CM. SW spoke with pt's [facility] CM and updated her that it appears pt is not able to be accepted to [facility] and pt would like to return home. Pt's CM states she will be calling pt tomorrow to make sure pt is doing well at home. SW provided pt with list of additional resources and encouraged pt to review list and call an agency. SW informed pt that the agency he chooses may have transportation assistance and to ask when he calls. Pt states that he has used [facility] before for transportation and he has to schedule two days in advance for appointments. SW encouraged pt to continue to utilize [facility] for transportation. SW asked pt about transportation home. Pt states I have no one. SW spoke with charge nurse, unable to use Hospital voucher as pt lives too far away. SW updated pt on this. Pt states he will call his friend Jeovany. Pt called Jeovany while this worker is in the room. Jeovany confirms he is able to transport pt and is currently at work but will be at [facility] around 4:00pm. HILARIO updated RN on transportation. Pt is requesting to be discharged now as his friend is on his way now. HILARIO placed a call to Jeovany. Jeovany states he is still at work unable to be at [facility] until around 4:00pm. RN updated. Original Note: Social Work Note HILARIO received message from MARISEL Wright at [facility] requesting call back. HILARIO attempted to call Adriana multiple times and when this worker called number provided, it stated unable to be connected to number at this time. HILARIO called different number and SW unable to get through to [facility]. Physician states pt is medically cleared for discharge today. HILARIO will continue to try to get a hold of [facility]. Uma Strauss [employer]PER[employer], SUPPLY CHAIN PROCUREMENT MANAGER
--- NOTE | 2019-07-26 11:22 | DCINST_ITS ---
- Discharge Diagnoses Current Active Problems: Current Active and Chronic Problems Alcoholism /alcohol abuse (Acute) Admitted to substance misuse detoxification center (Acute) Alcohol withdrawal (Acute) Tobacco use (Chronic) Anxiety (Chronic) Obesity (Chronic) Chronic pain syndrome (Chronic) You will use the following diet at home:: No restrictions Your food should be the consistency of: Regular Your liquids should be the consistency of: Regular/Thin Discharge Activity: Return to Normal Activity Weight Bearing Status: Full weight bearing Allergies/Adverse Reactions: Allergies gabapentin Allergy (Verified 07/22/19 11:29) Hives pregabalin [From Lyrica] Allergy (Verified 07/22/19 11:29) Hives Medications to take at Discharge Albuterol IH (ProAir) [Proair Hfa] 2 puff INHALATION Q4H PRN 07/22/19 Buspirone HCl 10 mg PO BID 07/22/19 Multivitamins,Therapeutic [Multivitamin] 1 tab PO DAILY 07/22/19 Oxycodone HCl 10 mg PO Q6H PRN PRN 07/22/19 Primary Care Physician: NOT,DEFINED [NON-STAFF] - Test Results: Test results from this visit will be discussed in further detail at your follow- up appointment, if applicable. Please Follow Up With: 180 as directed
[2019-07-26 14:49] VITALS: BP 126/81; PULSE 90; RESP 18; TEMP 36.3; O2SAT 98
--- NOTE | 2019-07-28 18:28 | PCM.DC.SUM ---
Discharge Date and Diagnosis Date of Admission: 07/22/19 Date of Discharge: 07/26/19 - Primary Discharge Diagnosis #1 acute alcohol withdrawal #2 alcoholism #3 chronic pain syndrome #4 chronic anxiety disorder - Secondary Discharge Diagnosis Chronic Problems Tobacco use (Chronic) Anxiety (Chronic) Obesity (Chronic) Chronic pain syndrome (Chronic) Hospital Course and Treatment Operations: None Procedures: None Summary of Care Provided: The patient is a 58 year old M was seen in the emergency room at [facility] with a chief complaint of detoxing from alcohol. He was directed by 180 to come into the ER for admission for detox. Alcohol level in the emergency room was 197, CBC and chemistry profile was unremarkable. Patient was admitted to [place] [address], orders were entered using the alcohol withdrawal order set, patient had no untoward events during his hospital stay, he did not undergo DTs. On 07/26/2019, patient was seen and examined: On examination he appeared in good health and spirits. Vital signs as documented. Skin warm and dry and without overt rashes. Neck without JVD. Lungs clear. Heart exam notable for regular rhythm, normal sounds and absence of murmurs, rubs or gallops. Abdomen unremarkable and without evidence of organomegaly, masses, or abdominal aortic enlargement. Extremities nonedematous. Neuro: Cranial nerves II through XII are grossly intact, no focal motor deficits were noted, sensation to light touch and pinprick intact. Psych: Patient is alert and oriented x3, he does not appear anxious or depressed Patient appeared to be in stable condition on 07/26/2019, he was discharged home in stable condition. - Physical Exam Vitals/I&O's: Vital Signs Temp Pulse Resp BP Pulse Ox 97.4 F L 90 18 126/81 H 98 07/26/19 14:49 07/26/19 14:49 07/26/19 14:49 07/26/19 14:49 07/26/19 14:49 Oxygen Delivery Method Room Air Weight: 89.675 kg Body Mass Index (BMI) 30.0 Intake and Output for Last 24 Hours 07/26/19 07/27/19 07/28/19 23:59 23:59 23:59 Intake Total 2210 / 2210 Output Total 1150 / 1150 Balance 1060 / 1060 Discharge Activity: Return to Normal Activity Weight Bearing Status: Full weight bearing Home Medications: Medications to take at Discharge Albuterol IH (ProAir) [Proair Hfa] 2 puff INHALATION Q4H PRN 07/22/19 Buspirone HCl 10 mg PO BID 07/22/19 Multivitamins,Therapeutic [Multivitamin] 1 tab PO DAILY 07/22/19 Oxycodone HCl 10 mg PO Q6H PRN PRN 07/22/19 Primary Care Physician: NOT,DEFINED [NON-STAFF] - Please Follow Up With: 180 as directed Disposition: Home Minutes spent on discharge:: 32 Patient Condition:: Stable Medical Necessity - Tobacco Use Smoking Status: Current every day smoker Tobacco Use: Cigarettes Meaningful Use Info Meaningful Use Diagnoses (Choose all that apply): None applicable Code Visit Inpatient E&M: 99684 Disch Hosp
== END 2019-07-26 15:10 | disposition home or self-care (01) | DRG 897 ==
LOC: ED 14:29 → MS3 14:44
PROVIDERS: Student in an Organized Health Care Education/Training Program; Admitting Provider Family Medicine; Emergency Provider Emergency Medicine; Referring Provider Family Medicine; Visit Provider Internal Medicine
DX: F10.232 Alcohol dependence with withdrawal with perceptual disturbance (principal); M79.606 Pain in leg, unspecified; Z79.899 Other long term (current) drug therapy; E66.09 Other obesity due to excess calories; G89.4 Chronic pain syndrome; Z79.891 Long term (current) use of opiate analgesic; F41.9 Anxiety disorder, unspecified; F17.210 Nicotine dependence, cigarettes, uncomplicated; Z68.29 Body mass index [BMI] 29.0-29.9, adult; K21.9 Gastro-esophageal reflux disease without esophagitis; Y90.6 Blood alcohol level of 120-199 mg/100 ml
CPT/HCPCS: 80053; 80320; 81001; 82962; 83735; 84100; 85027; 85610; 99251; 99283; 99406; G0463; G0480

== ENCOUNTER 2019-08-16 18:38 | Inpatient (IN) | payer MEDICARE, MEDICAID, SELFPAY ==
[2019-08-16 18:39] VITALS: BP 147/93; PULSE 104; RESP 18; TEMP 36.6; O2SAT 95; BMI 30.1
--- NOTE | 2019-08-16 19:03 | EKG12_ITS ---
Test Reason : FEVER Blood Pressure : / mmHG Vent. Rate : 095 BPM Atrial Rate : 095 BPM P-R Int : 226 ms QRS Dur : 082 ms QT Int : 348 ms P-R-T Axes : 071 034 059 degrees QTc Int : 437 ms Sinus rhythm with 1st degree A-V block Low voltage QRS Cannot rule out Anterior infarct , age undetermined Abnormal ECG Confirmed by GEGE LESLIE, EMANUEL ([id number]), commissioning editor AISHA GRUBER ([id number]) on 08/19/2019 1:07:50 PM Referred By: SERGEY Confirmed By:EMANUEL DE GUZMAN MD
--- NOTE | 2019-08-16 19:11 | ED.DCSUM_ITS ---
- ER Visit Summary Date of Service: 08/16/19 Chief Complaint: Alcohol withdrawal History of Present Illness: The patient is a 58 M presenting due to concern of alcohol withdrawal. Patient was admitted from 07/22 to July 26, 2019 for alcohol withdrawal. At that time he was discharged and advised to follow-up with [facility]. He states he tried to follow-up with [facility] but because he has spina bifida and is considered a fall risk he states that he was not eligible to go to [facility]. He has had vomiting and diarrhea today. He also complains of cough and subjective fever over the past 9 days. He has mild shortness of breath. He denies chest pain. Denies recent travel. Denies sick contacts. Denies other complaints. Physical Examination: Vitals are stable. Patient is afebrile. Alert no acute distress. 95% on room air HEENT exam is unremarkable. Neck is supple. Lungs are clear and equal bilaterally. Heart is regular and tachycardic Abdomen is soft nontender nondistended. Extremities are unremarkable. Skin is warm and dry. No focal neurologic deficit. Remainder of exam is unremarkable. Emergency Department Course and Treatment: EKG is sinus rate of 95 with first- degree AV block. Chest x-ray shows minor asymmetric interstitial thickening or scarring in left lower lobe of uncertain chronicity. CT chest shows minor thickening of the bronchial elder in the lower lobes which may be consistent with mild bronchitis. No focal interstitial or alveolar infiltrates. No groundglass opacities. Influenza and RSV were negative. CBC normal except platelet 146. Chemistries unremarkable. Alk phos 145, ALT 67, AST 126. Urinalysis unremarkable. Troponin is negative. Alcohol level 319. While in the emergency room patient began to feel more shaky and feels that he is going into alcohol withdrawal. Will discuss with the hospitalist for admission. Disposition: Admission Impression: Alcohol withdrawal, bronchitis This note was generated with [employer] dictation software. It may contain incorrect words, spelling, and punctuation that were not noted in review of the chart prior to signing ED Disposition - Plan for ED Patient:
--- NOTE | 2019-08-16 19:20 | RAD_ITS ---
STUDY: X-RAY CHEST REASON FOR EXAM: Male, 58 years old. fever and cough with sob TECHNIQUE: AP COMPARISON: None. FINDINGS: There is mild asymmetric interstitial thickening or scarring in left lower lobe of uncertain chronicity. There is no demonstrated pleural abnormality. Normal size heart. Normal mediastinum and rommel. Normal visualized pulmonary arteries. Normal visualized aortic arch and descending thoracic aorta. Normal visualized thoracic spine. Normal visualized ribs, clavicles, and shoulders. There is no demonstrated abnormality of the visualized soft tissue structures of the upper abdomen. RAD/Chest 1 View (Portable) IMPRESSION: Minor asymmetric interstitial thickening or scarring in left lower lobe of uncertain chronicity Electronically Signed: Jonathan Cavazos MD at 19:38 EDT , Service support ,
[2019-08-16 19:40] VITALS: BP 146/97; PULSE 88; RESP 20; TEMP 36.6; O2SAT 95
[2019-08-16] MEDS: 0.9% Normal Saline 1,000 ML 1000 ML IV (19:42)
--- NOTE | 2019-08-16 19:47 | CT_ITS ---
STUDY: CT CHEST WITHOUT CONTRAST REASON FOR EXAM: Male, 58 years old. COVID RULE OUT, COUGH AND FEVER X 9 DAYS, MILD SOB RADIATION DOSAGE (If Supplied By Facility): CTDIvol = ( 11.80 ) mGy, DLP = ( 448.16 ) mGycm TECHNIQUE: Transaxial imaging was performed without the administration of intravenous contrast material. Individualized dose optimization techniques were used for this CT. COMPARISON: None. FINDINGS: No focal infiltration or groundglass opacities. There does appear to be very mild thickening of the bronchial elder in the lower lobes possibly due to bronchitis There is no demonstrated pleural abnormality. Heart is normal size. There is minor coronary artery calcification Normal mediastinum. Normal hilar regions. Normal unenhanced pulmonary arteries. Minor atherosclerotic changes of the aorta without evidence for aneurysm. Dorsal spine demonstrates degenerative changes and mild multilevel chronic compression deformities. There is diffuse fatty infiltration of the liver. There is a hypoattenuated mass in the right adrenal measuring 3 x 2.75 cm likely representing adenoma. This may be further assessed with MRI.. CT/Chest without Contrast IMPRESSION: Minor thickening of the bronchial elder in the lower lobes which may be consistent with mild bronchitis. No focal interstitial or alveolar infiltrates. No groundglass opacities. Electronically Signed: Jonathan Cavazos MD at 20:31 EDT , Service support ,
[2019-08-16 19:59] LABS: Bacteria 0 SEEN /hpf (None Seen); Mucous, Urine 0 SEEN /hpf (<or=2+); Red Blood Cells-Urine 0 SEEN /hpf (0-5); Squamous Epithelial Cells - UA 0 SEEN /hpf (0-5); White Blood Cells 0 SEEN /hpf (0-5)
--- NOTE | 2019-08-16 20:00 | NURSING ---
Pt said he never took his temperature at home and does not know how to. Pt said he feels shaky. md notified. no orders given at this time
[2019-08-16 20:05] LABS: Color, Urine Yellow (Yellow); Glucose, Dipstick Normal (Normal); Ketone-Dipstick 5 mg/dl (Negative); Leukocyte Esterase-Dipstick Negative /ul (Negative); Nitrite-Dipstick Negative (Negative); Occult Blood-Urine 10 /ul (Negative); Protein-Dipstick Negative (Negative); Urine Bilirubin Dipstick Negative (Negative); Urine Clarity Clear (Clear); Urine Urobilinogen Normal (Normal)
[2019-08-16 20:09] LABS: Absolute Lymphocyte Count 1.45 X10^3/uL (0.83-4.51); Absolute Neutrophil Count 3.4 X10^3/uL (2.0-7.7); Basophil# 0.03 X10^3/uL; Basophil% 0.5 % (0-1); Eosinophils% 5.2 % (0-5); Hematocrit 43.4 % (40-54); Hemoglobin 15.3 g/dL (13.0-16.5); Lymphocyte # 1.45 X10^3/ul (4.0); Lymphocyte % 25.3 % (19-41); Mean Corp Hgb Conc 35.3 g/dL (32-36); Mean Corpuscular Hgb 32.1 pg (27.0-32.0); Mean Corpuscular Volume 91.2 fL (80-94); Mean Platelet Vol. 9.5 fl (6.2-12.0); Monocyte# 0.58 X10^3/uL; Monocyte% 10.1 % (0-10); NRBC Flagged by Analyzer 0 % (0-5); Neutrophil # 3.37 X10^3/uL (2.7-7.7); Neutrophil % 58.7 % (47-70); Platelet Count 146 K/mm3 (150-450); RBC Distribution Width CV 12.5 % (11.6-14.6); Red Blood Count 4.76 M/mm3 (4.6-6.2); White Blood Count 5.7 K/mm3 (4.4-11.0)
[2019-08-16 20:21] LABS: ALB/GLOB Ratio 1.1 RATIO (0.9-2.4); AST(SGOT) 126 U/L (15-37); Alanine Aminotransfer ALT/SGPT 67 U/L (16-61); Alkaline Phosphatase 145 U/L (45-117); Anion Gap 11 (5-15); BUN 5 mg/dL (7-18); BUN/Creat Ratio 8.7 RATIO (10-20); Calcium,Total 8.7 mg/dL (8.5-10.1); Chloride 98 mmol/L (98-107); Creatinine, Serum 0.58 mg/dL (0.70-1.30); EST Glomerular Filtration Rate 153 mL/min (>60); Est Glom Filt Rate - Afr Amer 185 mL/min (>60); Estimated Creatinine Clearance 134.31 ml/min; Globulin 3.5 g/dL (2.2-4.2); Glucose 86 mg/dL (74-106); Potassium 3.5 mmol/L (3.5-5.1); Protein, Total 7.5 g/dL (6.4-8.2); Sodium Level 136 mmol/L (136-145)
[2019-08-16 20:23] LABS: Amphetamine Urine VISTA NEGATIVE (<1000 ng/mL); Barbiturate Urine VISTA POSITIVE (< 200 ng/mL); Benzodiazepine Urine VISTA NEGATIVE (< 200 ng/mL); Cocaine Urine VISTA NEGATIVE (< 300 ng/mL); Ecstacy Urine VISTA NEGATIVE (< 500 ng/mL); Methadone Urine VISTA NEGATIVE (< 300 ng/mL); PCP Urine VISTA NEGATIVE (< 25 ng/mL); THC Urine VISTA NEGATIVE (< 50 ng/mL); Vista UDS pH Range 6
--- NOTE | 2019-08-16 20:51 | ED.RN ---
notified of alcohol 319
--- NOTE | 2019-08-16 20:54 | NURSING ---
Pt said he just wants to be detox otherwise he is ok
[2019-08-16 20:59] VITALS: BP 153/88; PULSE 94; RESP 18; TEMP 36.6; O2SAT 94
[2019-08-16 21:00] VITALS: BP 153/88; PULSE 94; RESP 18; TEMP 36.6; O2SAT 98
--- NOTE | 2019-08-16 21:25 | HP.PCM_ITS ---
Problem List (1) Alcoholism /alcohol abuse Status: Acute (2) Alcohol withdrawal Status: Acute Qualifiers: (3) Tobacco use Status: Chronic (4) Anxiety Status: Chronic (5) Obesity Status: Chronic Qualifiers: History of Present Illness Date of Admission: 08/16/19 Chief Complaint: alcohol withdrawal The patient is a 58 year old male patient with a long-term history of alcohol abuse presents the emergency room after drinking 3 large beers this morning and is now requesting to go through detoxification. The patient was admitted and discharged with similar complaint earlier this month. The patient denies chest pain or shortness of breath and is afebrile. He does have a chronic cough and smokes a pack of cigarettes daily. Chest x-ray is negative for acute infiltrative process CT scan was also negative for acute process of the lungs.. The patient will be admitted to regular medical floor and put on alcohol withdrawal protocol. Past Medical History Past Medical History (Chronic Problems): Chronic Problems Tobacco use (Chronic) Anxiety (Chronic) Obesity (Chronic) Chronic pain syndrome (Chronic) Allergies gabapentin Allergy (Verified 08/16/19 18:41) Hives pregabalin [From Lyrica] Allergy (Verified 08/16/19 18:41) Hives Home Medications: Ambulatory Orders Medication Instructions Recorded Albuterol IH (ProAir) [Proair Hfa] 2 puff INHALATION Q4H PRN 07/22/19 Buspirone HCl 10 mg PO BID 07/22/19 Multivitamins,Therapeutic 1 tab PO DAILY 07/22/19 [Multivitamin] Oxycodone HCl 10 mg PO Q6H PRN PRN 07/22/19 Surgical History: - - Right arm surgery. Psychiatric History: Anxiety Smoking Status: Current every day smoker - *Family History Maternal History Items: - - Patient denies any market maternal or paternal family history including heart disease, diabetes, cancer. Paternal History Items: - - Patient denies any market maternal or paternal family history including heart disease, diabetes, cancer. Review of Systems Constitutional: Denies: Chills, Fever, Weight Change HEENT: Denies: Head Aches, Sinus Congestion, Sinus Drainage Cardiovascular: Denies: Chest Pain, Palpitations Respiratory: Denies: Cough, Shortness of breath at rest, Sputum production Gastrointestinal: Denies: Abdominal Pain, Nausea, Vomiting Genitourinary: Denies: Dysuria Musculoskeletal: Denies: Joint Pain, Joint Tenderness Skin: Denies: Rash, Wounds Neurological: Denies: Numbness, Tingling, Focal weakness Psychiatric: Reports: Anxiety. Denies: Depression, Homicidal Ideations, Suicidal Ideations Hematologic/ Lymphatic: Denies: Easy Bruising, Easy Bleeding VTE Information - Inpt Only VTE Present on Admission: No VTE Mechan Device Prophylaxis: None VTE Pharm Prophylaxis ordered?: Yes - Physical Exam Vitals/I&O's: Vital Signs Temp Pulse Resp BP Pulse Ox 97.9 F 94 18 153/88 H 98 08/16/19 21:00 08/16/19 21:00 08/16/19 21:00 08/16/19 21:00 08/16/19 21:00 Oxygen Delivery Method Room Air Weight: 198 lb 3.129 oz Body Mass Index (BMI) 30.1 Intake and Output for Last 24 Hours 08/14/19 08/15/19 08/16/19 23:59 23:59 23:59 Intake Total 1000 / 1000 Balance 1000 / 1000 General: Alert, Oriented x3, Cooperative HEENT: Atraumatic, PERRLA, EOMI, Normocephalic Neck: Supple, No JVD Lungs: Clear to auscultation, Normal air movement Cardiovascular: Regular rate, Normal S1, Normal S2, No murmurs, Tachycardic Abdomen: Bowel Sounds Present, Soft, Non Tender, Obese Extremities: No edema, Capillary Refill Less than 3 Seconds Skin: No rashes, No breakdown Musculoskeletal: No Tenderness to Palpation of Joints or Extremities Neurological: Neuro grossly intact Psych/Mental Status: Appropriate, Anxious Microbiology Past 72 Hours 08/16/19 19:25 Nasal Secretion Influenza Types A,B Direct FA (LIZ) - Final 08/16/19 19:25 Nasal Secretion Rapid RSV (DFA) - Final Laboratory Results 08/16/19 19:30: WBC 5.7, RBC 4.76, Hgb 15.3, Hct 43.4, MCV 91.2, MCH 32.1 H, MCHC 35.3, RDW Std Deviation 42.0, RDW Coeff of Maren 12.5, Plt Count 146 L, MPV 9.5, Immature Gran % (Auto) 0.200, Neut % (Auto) 58.7, Lymph % (Auto) 25.3, Ross % (Auto) 10.1 H, Eos % (Auto) 5.2 H, Baso % (Auto) 0.5, Absolute Neuts (auto) 3.4, Absolute Lymphs (auto) 1.45, Nucleated RBC % 0 08/16/19 19:30: Sodium 136, Potassium 3.5, Chloride 98, Carbon Dioxide 27.0, Anion Gap 11, BUN 5 L, Creatinine 0.58 L, Estim Creat Clear Calc 134.31, Est GFR (MDRD) Af Amer 185, Est GFR (MDRD) Non-Af 153, BUN/Creatinine Ratio 8.7 L, Glucose 86, Calcium 8.7, Total Bilirubin 0.60, AST 126 H, ALT 67 H, Alkaline Phosphatase 145 H, Troponin I < 0.015, Total Protein 7.5, Albumin 4.0, Globulin 3.5, Albumin/Globulin Ratio 1.1 08/16/19 19:30: Ethyl Alcohol 319.0 H* 08/16/19 19:30: Urine Opiates Screen NEGATIVE, Urine Methadone Screen NEGATIVE, Ur Barbiturates Screen POSITIVE H, Ur Phencyclidine Scrn NEGATIVE, Ur Amphetamines Screen NEGATIVE, U Methamphetamin-MDMA NEGATIVE, U Benzodiazepines Scrn NEGATIVE, Urine Cocaine Screen NEGATIVE, U Cannabinoids Screen NEGATIVE, Ur Drug Screen Comment 08/16/19 19:30: Urine Color Yellow, Urine Clarity Clear, Urine pH 6.0, Ur Specific [place] 1.010, Urine Protein Negative, Urine Glucose (UA) Normal, Urine Ketones 5 H, Urine Occult Blood 10 H, Urine Nitrite Negative, Urine Bilirubin Negative, Urine Urobilinogen Normal, Ur Leukocyte Esterase Negative, Urine RBC 0 SEEN, Urine WBC 0 SEEN, Ur Squamous Epith Cells 0 SEEN, Urine Bacteria 0 SEEN, Urine Mucus 0 SEEN Assessment/Plan All Active Problems Alcoholism /alcohol abuse (Acute) Admitted to substance misuse detoxification center (Acute) Alcohol withdrawal (Acute) Chronic Problems Tobacco use (Chronic) Anxiety (Chronic) Obesity (Chronic) Chronic pain syndrome (Chronic) Plan 1. Acute alcohol withdrawal?plan admit to general medical floor placed on [facility] protocol, consult case management in the morning 2. Tobacco abuse disorder?nicotine patch 3. Of note patient has no cough during my evaluation and is afebrile and it was my impression after reviewing CT scan and x-ray that there is a low probability for any infectious process. 4. DVT prophylaxis?low molecular weight heparin Inpatient E&M: 88053 Init Hosp L3
[2019-08-16 22:01] VITALS: BP 140/100; PULSE 89; RESP 18; TEMP 36.6; O2SAT 95
[2019-08-16 22:39] VITALS: BMI 30.2; BMI 30.3
[2019-08-16 22:59] VITALS: BP 138/90; PULSE 98; RESP 16; TEMP 36.3; O2SAT 94
[2019-08-16] MEDS: busPIRone 5 MG Tablet 10 MG PO (23:35)
[2019-08-16] MEDS: LORazepam 1 MG Tablet 2 MG PO (23:41)
[2019-08-17] VITALS (8 sets, daily range): BP systolic 112–140; BP diastolic 68–85; PULSE 96–127; RESP 18; TEMP 36.4–37.3; O2SAT 94–97
[2019-08-17] MEDS: traZODone 100 MG Tablet PO (01:17)
[2019-08-17] MEDS: LORazepam 1 MG Tablet 2 MG PO (03:10)
[2019-08-17] MEDS: Phenobarbital 32.4 MG Tablet 64.8 MG PO ×5 (04:35→20:42)
[2019-08-17] MEDS: Ondansetron 8 MG Tablet PO (08:30)
[2019-08-17] MEDS: Folic Acid 1 MG Tablet PO (09:07)
[2019-08-17] MEDS: Thiamine Hydrochloride 100 MG Tablet PO (09:07)
[2019-08-17] MEDS: Enoxaparin 40 MG/0.4 ML Syringe SC (09:07)
[2019-08-17] MEDS: busPIRone 5 MG Tablet 10 MG PO ×2 (09:07→20:42)
[2019-08-17] MEDS: hydrOXYzine PAM 25 MG Capsule 50 MG PO ×2 (09:07→14:14)
--- NOTE | 2019-08-17 09:41 | PCM.PN.HOSP ---
Subjective: Patient seen and examined. He was admitted for acute alcohol withdrawal. Patient complains of mild tremors this morning and complained of some episodes of diarrhea which is now clearing up as it is getting more solid. He denies any fever or chills and denies any chest pain or palpitations. He does admit to sinus congestion with an occasional mild cough. Review of symptoms otherwise negative. Labs and vitals reviewed. Patient noted to be tachycardic at this morning with heart rate of 121. CIWA score is 5. Vitals/I&O's: Vital Signs Temp Pulse Resp BP Pulse Ox 98.0 F 121 H 18 130/81 H 95 08/17/19 08:12 08/17/19 08:12 08/17/19 08:12 08/17/19 08:12 08/17/19 08:12 Oxygen Delivery Method Room Air Weight: 199 lb 1.239 oz Body Mass Index (BMI) 30.2 Intake and Output for Last 24 Hours 08/15/19 08/16/19 08/17/19 23:59 23:59 23:59 Intake Total 1000 / 1000 800 / 800 Output Total 900 / 900 Balance 1000 / 1000 -100 / -100 General: Alert, Oriented x3, Cooperative, No apparent distress HEENT: Atraumatic, PERRLA, EOMI, Normocephalic Oral: Moist Mucosa Neck: Supple, No JVD, Negative Carotid Bruits Lungs: Clear to auscultation, Normal air movement, No rhonchi, No wheeze Cardiovascular: Regular rate, Normal S1, Normal S2, No murmurs, Tachycardic Abdomen: Bowel Sounds Present, Soft, Non Tender, Non-Distended, No Hepato-splenomegaly Extremities: No clubbing, No cyanosis, No edema, Capillary Refill Less than 3 Seconds Skin: No rashes, No breakdown Musculoskeletal: No Tenderness to Palpation of Joints or Extremities Lymphatic: No Cervical, Supraclavicular, or Inguinal Adenopathy Neurological: Cranial nerves II-XII grossly intact, Neuro grossly intact, Motor Exam 5/5 strength throughout Psych/Mental Status: Normal Affect, Appropriate, Alert and oriented to time, place, person, mood and affect Microbiology Past 72 Hours 08/16/19 19:25 Nasal Secretion Influenza Types A,B Direct FA (LIZ) - Final 08/16/19 19:25 Nasal Secretion Rapid RSV (DFA) - Final Laboratory Results 08/16/19 19:30: WBC 5.7, RBC 4.76, Hgb 15.3, Hct 43.4, MCV 91.2, MCH 32.1 H, MCHC 35.3, RDW Std Deviation 42.0, RDW Coeff of Maren 12.5, Plt Count 146 L, MPV 9.5, Immature Gran % (Auto) 0.200, Neut % (Auto) 58.7, Lymph % (Auto) 25.3, [place] % (Auto) 10.1 H, Eos % (Auto) 5.2 H, Baso % (Auto) 0.5, Absolute Neuts (auto) 3.4, Absolute Lymphs (auto) 1.45, Nucleated RBC % 0 08/16/19 19:30: Sodium 136, Potassium 3.5, Chloride 98, Carbon Dioxide 27.0, Anion Gap 11, BUN 5 L, Creatinine 0.58 L, Estim Creat Clear Calc 134.31, Est GFR (MDRD) Af Amer 185, Est GFR (MDRD) Non-Af 153, BUN/Creatinine Ratio 8.7 L, Glucose 86, Calcium 8.7, Total Bilirubin 0.60, AST 126 H, ALT 67 H, Alkaline Phosphatase 145 H, Troponin I < 0.015, Total Protein 7.5, Albumin 4.0, Globulin 3.5, Albumin/Globulin Ratio 1.1 08/16/19 19:30: Ethyl Alcohol 319.0 H* 08/16/19 19:30: Urine Opiates Screen NEGATIVE, Urine Methadone Screen NEGATIVE, Ur Barbiturates Screen POSITIVE H, Ur Phencyclidine Scrn NEGATIVE, Ur Amphetamines Screen NEGATIVE, U Methamphetamin-MDMA NEGATIVE, U Benzodiazepines Scrn NEGATIVE, Urine Cocaine Screen NEGATIVE, U Cannabinoids Screen NEGATIVE, Ur Drug Screen Comment 08/16/19 19:30: Urine Color Yellow, Urine Clarity Clear, Urine pH 6.0, Ur Specific [place] 1.010, Urine Protein Negative, Urine Glucose (UA) Normal, Urine Ketones 5 H, Urine Occult Blood 10 H, Urine Nitrite Negative, Urine Bilirubin Negative, Urine Urobilinogen Normal, Ur Leukocyte Esterase Negative, Urine RBC 0 SEEN, Urine WBC 0 SEEN, Ur Squamous Epith Cells 0 SEEN, Urine Bacteria 0 SEEN, Urine Mucus 0 SEEN Diagnostic Data Chest X-Ray 08/16/19 19:20 IMPRESSION: Minor asymmetric interstitial thickening or scarring in left lower lobe of uncertain chronicity Electronically Signed: Jonathan Cavazos MD at 19:38 EDT , Service support , Chest CT 08/16/19 19:47 IMPRESSION: Minor thickening of the bronchial elder in the lower lobes which may be consistent with mild bronchitis. No focal interstitial or alveolar infiltrates. No groundglass opacities. Electronically Signed: Jonathan Cavazos MD at 20:31 EDT , Service support , Current Medications Buspirone HCl (Buspar) 10 mg PO BID [facility] Last Admin: 08/17/19 09:07 Dose: 10 mg Documented by: Dicyclomine HCl (Bentyl) 20 mg PO Q6H PRN PRN PRN Reason: abdominal discomfort Enoxaparin Sodium (Lovenox) 40 mg SC DAILY [facility] Last Admin: 08/17/19 09:07 Dose: 40 mg Documented by: Folic Acid (Folic Acid) 1 mg PO DAILY@0800 [facility] Last Admin: 08/17/19 09:07 Dose: 1 mg Documented by: Hydroxyzine Pamoate (Vistaril Pamoate Capsule) 50 mg PO Q4H PRN PRN PRN Reason: mild anxiety Loperamide HCl (Imodium) 2 mg PO Q4H PRN PRN PRN Reason: LOOSE STOOLS Nutritional Formula (Lactose Free) (Ensure Enlive) 120 ml PO 4X/DAY [facility] Last Admin: 08/17/19 09:15 Dose: 120 ml Documented by: Ondansetron HCl (Zofran) 8 mg PO Q8H PRN PRN PRN Reason: NAUSEA Last Admin: 08/17/19 08:30 Dose: 8 mg Documented by: Phenobarbital (Phenobarbital) 97.2 mg PO Q4H [facility]; Taper Stop: 08/21/19 09:29 Last Admin: 08/17/19 09:10 Dose: 97.2 mg Documented by: Sodium Chloride () 10 - 40 ml IV UD PRN PRN Reason: SALINE FLUSH Thiamine [facility] ([facility]itamin B1) [facility] Admin: 08/17/19 09:07 Dose: 100 mg Documented by: Trazodone HCl (Desyrel) 100 mg PO QHS PRN PRN Reason: INSOMNIA Last Admin: 08/17/19 01:17 Dose: 100 mg Documented by: STROKE Vital Signs/Narrative: Vital Signs Temp Pulse Resp BP Pulse Ox 08/17/19 08:12 98.0 F 121 H 18 130/81 H 95 08/17/19 06:16 97.5 F L 127 H 18 117/71 94 Medical Necessity - Tobacco Use Smoking Status: Current every day smoker Tobacco Use: Cigarettes Assessment/Plan All Active Problems Alcoholism /alcohol abuse (Acute) Admitted to substance misuse detoxification center (Acute) Alcohol withdrawal (Acute) 1. Acute alcohol withdrawal CIWA score is 5 this morning on thiamine, multivite and folic acid on alcohol withdrawal protocol with phenobarbital 2. SInus tachycardia HR today is 121. Will check TSH and monitor consider starting beta erick if tachycardia persists 3. DVT prophylaxis: lovenox disposition: patient wants to go to inpatient unit of [facility] when ready for discharge. case management on board Inpatient E&M: 23299 Subs Hosp L2
--- NOTE | 2019-08-17 10:22 | CASEMGMT ---
Social Work Note HILARIO received call from Kelsey at [facility]. Kelsey states she will be at [facility] later this afternoon to meet with pt. HILARIO updated Kelsey that pt was just recently at [facility] for treatment but was unable to admit to [facility] due to pt's fall risk. Kelsey states understanding. Plan: [facility] to meet with pt later this afternoon to complete assessment Uma Strauss NIGHT WAREHOUSE MANAGER, CASE MANAGEMENT SPECIALIST
[2019-08-17] MEDS: DiphenhydrAMINE 25 MG Capsule PO (12:23)
--- NOTE | 2019-08-17 13:48 | ADDICTION ---
This marketing writer met with patient in his room. He was alert and oriented x4 and reported no SI/HI. He effectively communicated his wants and needs to this marketing writer and expressed interest in Residential treatment following discharge from medical withdrawal management. Patient reported that he came to [facility] for assistance with alcohol withdrawal symptom management. He reports that he was admitted to Med/Surg3 on 08/16/2019. Patient's chart corroborated client's report. He stated that he is unsure of when he will discharge but that he does not have safe/sober housing set up upon discharge. At this time, patient meets ASAM criteria for 4.0 Inpatient Hospitalization to address symptoms of withdrawal, need for medical withdrawal management; history of barriers related to health and physical wellness; and his reported history of suicidal ideations with no attempts, unmanageable impulses to use alcohol, and insufficient ability to control behavioral problems. This marketing writer will obtain CHRISTINA from client for [facility] and will start process of Residential admit prior to patient discharging from hospital. This marketing writer plans to visit with patient tomorrow to discuss potential admit procedure and to gather further pertinent information. Dimension1: Withdrawal/Detoxification Potential: Patient currently engaging in medical withdrawal management services with [facility]. He reports that his last date of use was 08/16/2019. He reports a history of withdrawal including shakiness, agitation, loss of physical control, restless leg, nausea, headache, vomiting. Dimension2: Biomedical conditions/concerns: Patient reports prior diagnosis of Spina Bifida, is currently managed. Patient reports a history of significant pain and use of alcohol as a form of self-medication for pain management. Dimension3: Emotional/behavioral/cognitive conditions/concerns: Patient reports no current SI/HI but reports history of SI with no attempt. Patient reports barriers to independent living based on depression symptoms including lethargy and social withdrawal. He appears oriented x4. Dimension4: Readiness to change: Patient reports a history of treatment non-compliance and relapse following detoxification. Patient reports that he will continue to use without treatment. Patient reports limited understanding/knowledge of addiction. Dimension5: Relapse, continued use or continued problem potential: Patient is at a high risk of relapse based on his report, history of relapse following detoxification and no report of knowledge of triggers and/or coping skills. Dimension6: Recovery/Living Environment: Patient lives independently and uses alcohol in home. Patient reports that he uses alcohol based on social isolation and does not have the ability to independently obtain sober supports. Patient states that he will return to use if he returns home.
--- NOTE | 2019-08-17 15:05 | CHAPLAIN ---
Type of Pastoral Visit _x__ Initial Visit ___ Follow-up Visit ___ On-call Visit ___ General Patient Visit ___ Spiritual Assessment ___ Family Conference ___ Bereavement ___ Rapid Response ___ Code Blue ___ Other (describe below) Pastoral Care Referral From _x__ Patient ___ Family _x__ Nurse ___ Physician ___ Joint Setter ___ Motorized Squad Captain ___ Other (describe below) Sacrament/Intervention _x__ Active listening ___ Anointing ___ Baptist ___ Bereavement ___ Communion ___ Ling exploration ___ ___ Life review _x__ Prayer ___ Reconciliation ___ Sacrament of Sick _x__ Supportive presence ___ Wedding ___ Other (describe below) Pastoral Comments
[2019-08-17] MEDS: Loperamide 2 MG Capsule PO (16:47)
[2019-08-18] MEDS: Phenobarbital 32.4 MG Tablet 64.8 MG PO ×6 (00:35→19:38)
[2019-08-18] MEDS: 0.9% Saline Lock 10 ML Syringe IV (00:42)
[2019-08-18] MEDS: hydrOXYzine PAM 25 MG Capsule 50 MG PO (02:18)
[2019-08-18] MEDS: DiphenhydrAMINE 25 MG Capsule PO (02:18)
[2019-08-18 02:22] VITALS: BP 123/72; PULSE 94; RESP 17; TEMP 36.6; O2SAT 95
[2019-08-18 08:42] VITALS: BP 137/75; PULSE 86; RESP 16; TEMP 36.6; O2SAT 96
[2019-08-18] MEDS: Folic Acid 1 MG Tablet PO (09:03)
[2019-08-18] MEDS: Enoxaparin 40 MG/0.4 ML Syringe SC (09:03)
[2019-08-18] MEDS: busPIRone 5 MG Tablet 10 MG PO ×2 (09:03→21:08)
[2019-08-18] MEDS: Thiamine Hydrochloride 100 MG Tablet PO (09:03)
--- NOTE | 2019-08-18 09:18 | CASEMGMT ---
Social Work Note HILARIO received message from Maria Eugenia RICH at [facility] stating pt was going to go into residential treatment through the [facility] but [facility]. Maria Eugenia states she had arranged for pt to do outpatient through the [facility] but pt didn't want to do outpatient treatment. Maria Eugenia provided number [phone] ext. [phone]. HILARIO received call from pt's NICHOLAS Wade through [facility]. Mauro asked about discharge plans for pt. HILARIO updated Mauro that plan is [facility] residential if pt is accepted. [facility], HILARIO informed Mauro that he would need to call [facility] to speak to them. HILARIO received call from Kelsey at [facility] stating she is trying to get pt approved for residential but she needs release of information for pt's PCP so she can get clinicals from PCP. HILARIO in to speak with pt. HILARIO introduced self and role at [facility]. Pt states his PCP is Dr. Roberts at [facility]. Pt signed CHRISTINA for PCP. HILARIO faxed CHRISTINA and updated clinicals to Kelsey at [facility]. HILARIO attempted to call Maria Eugenia at [facility] but there was no answer and no voicemail available to leave message. eKlsey at [facility] should be calling [facility] to get clinicals. Uma Strauss ASSEMBLYMAN OR WOMAN, TALENT ACQUISITION ASSISTANT
--- NOTE | 2019-08-18 09:56 | PN_ITS ---
Subjective: Patient seen and examined. Complains of mild tremors but has no complaints otherwise. Review of systems otherwise negative. Vitals/I&O's: Vital Signs Temp Pulse Resp BP Pulse Ox 97.9 F 86 16 137/75 H 96 08/18/19 08:42 08/18/19 08:42 08/18/19 08:42 08/18/19 08:42 08/18/19 08:42 Oxygen Delivery Method Room Air Weight: 199 lb 1.239 oz Body Mass Index (BMI) 30.2 Intake and Output for Last 24 Hours 08/16/19 08/17/19 08/18/19 23:59 23:59 23:59 Intake Total 1000 / 1000 1520 / 1520 990 / 990 Output Total 1150 / 1150 1350 / 1350 Balance 1000 / 1000 370 / 370 -360 / -360 General: Alert, Oriented x3, Cooperative, No apparent distress HEENT: Atraumatic, PERRLA, EOMI, Normocephalic Oral: Moist Mucosa Neck: Supple, No JVD, Negative Carotid Bruits Lungs: Clear to auscultation, Normal air movement, No rhonchi, No wheeze Cardiovascular: Regular rate, Normal S1, Normal S2, No murmurs, Tachycardic Abdomen: Bowel Sounds Present, Soft, Non Tender, Non-Distended, No Hepato- splenomegaly Extremities: No clubbing, No cyanosis, No edema, Capillary Refill Less than 3 Seconds Skin: No rashes, No breakdown Musculoskeletal: No Tenderness to Palpation of Joints or Extremities Lymphatic: No Cervical, Supraclavicular, or Inguinal Adenopathy Neurological: Cranial nerves II-XII grossly intact, Neuro grossly intact, Motor Exam 5/5 strength throughout Psych/Mental Status: Normal Affect, Appropriate, Alert and oriented to time, place, person, mood and affect Microbiology Past 72 Hours 08/16/19 19:25 Nasal Secretion Influenza Types A,B Direct FA (LIZ) - Final 08/16/19 19:25 Nasal Secretion Rapid RSV (DFA) - Final Laboratory Results 08/16/19 19:30: TSH 1.30 Current Medications Buspirone HCl (Buspar) 10 mg PO BID [facility] Last Admin: 08/18/19 09:03 Dose: 10 mg Documented by: Dicyclomine HCl (Bentyl) 20 mg PO Q6H PRN PRN PRN Reason: abdominal discomfort Diphenhydramine HCl (Benadryl) 25 mg PO BID PRN PRN PRN Reason: SINUS CONGESTION Last Admin: 08/18/19 02:18 Dose: 25 mg Documented by: Enoxaparin Sodium (Lovenox) 40 mg SC DAILY [facility] Last Admin: 08/18/19 09:03 Dose: 40 mg Documented by: Folic Acid (Folic Acid) 1 mg PO DAILY@0800 [facility] Last Admin: 08/18/19 09:03 Dose: 1 mg Documented by: Hydroxyzine Pamoate (Vistaril Pamoate Capsule) 50 mg PO Q4H PRN PRN PRN Reason: mild anxiety Last Admin: 08/18/19 02:18 Dose: 50 mg Documented by: Loperamide HCl (Imodium) 2 mg PO Q4H PRN PRN PRN Reason: LOOSE STOOLS Last Admin: 08/17/19 16:47 Dose: 2 mg Documented by: Nutritional Formula (Lactose Free) (Ensure Enlive) 120 ml PO 4X/DAY [facility] Last Admin: 08/18/19 09:04 Dose: 120 ml Documented by: Ondansetron HCl (Zofran) 8 mg PO Q8H PRN PRN PRN Reason: NAUSEA Last Admin: 08/17/19 08:30 Dose: 8 mg Documented by: Phenobarbital (Phenobarbital) 97.2 mg PO Q4H [facility]; Taper Stop: 08/21/19 09:29 Last Admin: 08/18/19 09:03 Dose: 97.2 mg Documented by: Sodium Chloride () 10 - 40 ml IV UD PRN PRN Reason: SALINE FLUSH Last Admin: 08/18/19 00:42 Dose: 10 ml Documented by: Thiamine HCl (Vitamin B1) 100 mg PO DAILYCM [facility] Last Admin: 08/18/19 09:03 Dose: 100 mg Documented by: Trazodone HCl (Desyrel) 100 mg PO QHS PRN PRN Reason: INSOMNIA Last Admin: 08/17/19 01:17 Dose: 100 mg Documented by: STROKE Vital Signs/Narrative: Vital Signs Temp Pulse Resp BP Pulse Ox 08/18/19 08:42 97.9 F 86 16 137/75 H 96 Medical Necessity - Tobacco Use Smoking Status: Current every day smoker Tobacco Use: Cigarettes Assessment/Plan All Active Problems Alcoholism /alcohol abuse (Acute) Admitted to substance misuse detoxification center (Acute) Alcohol withdrawal (Acute) 1. Acute alcohol withdrawal * CIWA score is 2 this morning * on thiamine, multivite and folic acid * on alcohol withdrawal protocol with phenobarbital * 2. Sinus tachycardia * Tachycardia has resolved. TSH was 1.21. * 3. DVT prophylaxis: lovenox disposition:for DC To [facility] once stable. Inpatient E&M: 21697 Subs Hosp L2
[2019-08-18 14:33] VITALS: BP 143/83; PULSE 90; RESP 16; TEMP 36.7; O2SAT 95
--- NOTE | 2019-08-18 15:20 | ADDICTION ---
This television writer met with patient in his room. He was alert and oriented x4 and reported no SI/HI. He effectively communicated his wants and needs to this television writer and expressed interest in Residential treatment following discharge from medical withdrawal management. This television writer informed patient that he has been accepted into [facility] pending medical clearance and successful discharge from [facility]. He stated that he does not have transportation home and is unwilling to present directly to [facility] following hospital discharge. This television writer will discuss patient concerns with hospital director social in attempts to find solution. This television writer will provide patient with the contact telephone number for [facility]'s transportation assistance. He has been encouraged to contact [facility] for transportation to his home following hospital discharge and to [facility] after he has time in his home to gather essentials. This television writer also got CHRISTINA signed for patient's primary care provider for further medical information and has requested that hospital director social get patient information from PCP. At this time, patient meets ASAM criteria for 4.0 Inpatient Hospitalization to address symptoms of withdrawal, need for medical withdrawal management; history of barriers related to health and physical wellness; and his reported history of suicidal ideations with no attempts, unmanageable impulses to use alcohol, and insufficient ability to control behavioral problems. It appears that he will be prepared to engage in a 3.5 LOC following hospital discharge. Dimension1: Withdrawal/Detoxification Potential: Patient currently engaging in medical withdrawal management services with [facility]. He reports that his last date of use was 08/16/2019. He reports a history of withdrawal including shakiness, agitation, loss of physical control, restless leg, nausea, headache, vomiting. Dimension2: Biomedical conditions/concerns: Patient reports prior diagnosis of Spina Bifida, is currently managed. Patient reports a history of significant pain and use of alcohol as a form of self-medication for pain management. Dimension3: Emotional/behavioral/cognitive conditions/concerns: Patient reports no current SI/HI but reports history of SI with no attempt. Patient reports barriers to independent living based on depression symptoms including lethargy and social withdrawal. He appears oriented x4. Dimension4: Readiness to change: Patient reports a history of treatment non-compliance and relapse following detoxification. Patient reports that he will continue to use without treatment. Patient reports limited understanding/knowledge of addiction. Dimension5: Relapse, continued use or continued problem potential: Patient is at a high risk of relapse based on his report, history of relapse following detoxification and no report of knowledge of triggers and/or coping skills. Dimension6: Recovery/Living Environment: Patient lives independently and uses alcohol in home. Patient reports that he uses alcohol based on social isolation and does not have the ability to independently obtain sober supports. Patient states that he will return to use if he returns home.
--- NOTE | 2019-08-18 16:31 | CHAPLAIN ---
Type of Pastoral Visit ___ Initial Visit _x__ Follow-up Visit ___ On-call Visit ___ General Patient Visit ___ Spiritual Assessment ___ Family Conference ___ Bereavement ___ Rapid Response ___ Code Blue ___ Other (describe below) Pastoral Care Referral From _x__ Patient ___ Family ___ Nurse ___ Physician ___ Complex Care Nurse Practitioner ___ Dispatch Officer ___ Other (describe below) Sacrament/Intervention _x__ Active listening ___ Anointing ___ Restorationist ___ Bereavement ___ Communion ___ Ling exploration ___ ___ Life review _x__ Prayer ___ Reconciliation ___ Sacrament of Sick _x__ Supportive presence ___ Wedding ___ Other (describe below) Pastoral Comments met for follow up and patient expresses worries about getting his belongings at home before going to [facility]; discussed options with patient; pt makes choice to go to [facility] tomorrow as planned and to ask a friend to gather his things needed at his home and pay his bills for him; pt admits that if he goes home he will be vulnerable to drink beer; pt welcomes prayer from server engineer; pt states that he feels better now having talked through his options; pt says he has no other worries at this time
[2019-08-18 21:03] VITALS: BP 133/86; PULSE 88; RESP 16; TEMP 36.7; O2SAT 97
[2019-08-19 00:28] VITALS: BP 135/93; PULSE 94; RESP 18; TEMP 36.5; O2SAT 96
[2019-08-19] MEDS: Phenobarbital 32.4 MG Tablet 64.8 MG PO ×4 (00:29→12:24)
[2019-08-19 05:03] VITALS: BP 133/89; PULSE 84; RESP 16; TEMP 37.1; O2SAT 98
[2019-08-19] MEDS: Folic Acid 1 MG Tablet PO (09:32)
[2019-08-19] MEDS: busPIRone 5 MG Tablet 10 MG PO (09:32)
[2019-08-19] MEDS: Enoxaparin 40 MG/0.4 ML Syringe SC (09:32)
[2019-08-19] MEDS: Thiamine Hydrochloride 100 MG Tablet PO (09:32)
--- NOTE | 2019-08-19 09:43 | PCM.DC ---
You will use the following diet at home:: Cardiac Your food should be the consistency of: Regular Your liquids should be the consistency of: Regular/Thin Discharge Activity: Return to Normal Activity Weight Bearing Status: Weight bearing as tolerated Call your doctor if you observe: Shortness of breath, Dizziness Instructions: ED Withdrawal Alcohol Allergies/Adverse Reactions: Allergies gabapentin Allergy (Verified 08/16/19 18:41) Hives pregabalin [From Lyrica] Allergy (Verified 08/16/19 18:41) Hives Medications to take at Discharge Albuterol IH (ProAir) [Proair Hfa] 2 puff INHALATION Q4H PRN 07/22/19 Buspirone HCl 10 mg PO BID 07/22/19 Multivitamins,Therapeutic [Multivitamin] 1 tab PO DAILY 07/22/19 Oxycodone HCl 10 mg PO Q6H PRN PRN 07/22/19 Primary Care Physician: [facility] [Primary Care Provider] - Please follow up with your Primary Care Physician in: one week Test Results: Test results from this visit will be discussed in further detail at your follow-up appointment, if applicable. Proposed Discharge Date: 08/19/19
--- NOTE | 2019-08-19 09:47 | PCM.DC.SUM ---
Discharge Date and Diagnosis Date of Admission: 08/16/19 Date of Discharge: 08/19/19 - Primary Discharge Diagnosis acute alcohol withdrawal - Secondary Discharge Diagnosis Chronic Problems Tobacco use (Chronic) Anxiety (Chronic) Obesity (Chronic) Chronic pain syndrome (Chronic) Hospital Course and Treatment Operations: None Procedures: None Summary of Care Provided: Patient is a 58-year-old male with past medical history as outlined which includes chronic alcohol abuse. He was admitted through the ED on 08/16/2019 for acute alcohol withdrawal. Patient had drank 3 large beers in the morning of admission. Chest x-ray was negative for any acute cardiopulmonary process. Labs were otherwise unremarkable. He was admitted to be managed for acute alcohol withdrawal. Patient was tachycardic on admission but TSH done was within normal limits. Tachycardia subsequently resolved. He was put on acute alcohol withdrawal protocol with phenobarbital. Patient completed 3-day withdrawal process and was discharged to [facility] in 08-18. Patient seen and examined prior to discharge. He had no complaints. Review systems otherwise negative. Labs and vitals reviewed. Medication reviewed and reconciled. o/e: Vital Signs Height 5 ft 8 in Weight: 199 lb 1.239 oz Weight in Pounds 199.1 lbs Pulse Ox 97 Temperature 98.5 F Pulse Rate 92 Respiratory Rate 18 Blood Pressure 136/91 Blood Pressure Position Semi-Fowlers General: Alert, Oriented x3, Cooperative, No apparent distress HEENT: Atraumatic, PERRLA, EOMI, Normocephalic Oral: Moist Mucosa Neck: Supple, No JVD, Negative Carotid Bruits Lungs: Clear to auscultation, Normal air movement, No rhonchi, No wheeze Cardiovascular: Regular rate, Normal S1, Normal S2, No murmurs, Tachycardic Abdomen: Bowel Sounds Present, Soft, Non Tender, Non-Distended, No Hepato-splenomegaly Extremities: No clubbing, No cyanosis, No edema, Capillary Refill Less than 3 Seconds Skin: No rashes, No breakdown Musculoskeletal: No Tenderness to Palpation of Joints or Extremities Lymphatic: No Cervical, Supraclavicular, or Inguinal Adenopathy Neurological: Cranial nerves II-XII grossly intact, Neuro grossly intact, Motor Exam 5/5 strength throughout Psych/Mental Status: Normal Affect, Appropriate, Alert and oriented to time, place, person, mood and affect Plan as above. - Physical Exam Vitals/I&O's: Vital Signs Temp Pulse Resp BP Pulse Ox 98.7 F 84 16 133/89 H 98 08/19/19 05:03 08/19/19 05:03 08/19/19 05:03 08/19/19 05:03 08/19/19 05:03 Oxygen Delivery Method Room Air Weight: 199 lb 1.239 oz Body Mass Index (BMI) 30.2 Intake and Output for Last 24 Hours 08/17/19 08/18/19 08/19/19 23:59 23:59 23:59 Intake Total 1520 / 1520 990 / 990 1999 / 1999 Output Total 1150 / 1150 1350 / 1350 1025 / 1025 Balance 370 / 370 -360 / -360 975 / 975 Microbiology Past 72 Hours 08/16/19 19:25 Nasal Secretion Influenza Types A,B Direct FA (LIZ) - Final 08/16/19 19:25 Nasal Secretion Rapid RSV (DFA) - Final Current Medications Buspirone HCl (Buspar) 10 mg PO BID [facility] Last Admin: 08/19/19 09:32 Dose: 10 mg Documented by: Dicyclomine HCl (Bentyl) 20 mg PO Q6H PRN PRN PRN Reason: abdominal discomfort Diphenhydramine HCl (Benadryl) 25 mg PO BID PRN PRN PRN Reason: SINUS CONGESTION Last Admin: 08/18/19 02:18 Dose: 25 mg Documented by: Enoxaparin Sodium (Lovenox) 40 mg SC DAILY [facility] Last Admin: 08/19/19 09:32 Dose: 40 mg Documented by: Folic Acid (Folic Acid) 1 mg PO DAILY@0800 [facility] Last Admin: 08/19/19 09:32 Dose: 1 mg Documented by: Hydroxyzine Pamoate (Vistaril Pamoate Capsule) 50 mg PO Q4H PRN PRN PRN Reason: mild anxiety Last Admin: 08/18/19 02:18 Dose: 50 mg Documented by: Loperamide HCl (Imodium) 2 mg PO Q4H PRN PRN PRN Reason: LOOSE STOOLS Last Admin: 08/17/19 16:47 Dose: 2 mg Documented by: Nutritional Formula (Lactose Free) (Ensure Enlive) 120 ml PO 4X/DAY [facility] Last Admin: 08/18/19 21:08 Dose: 120 ml Documented by: Ondansetron HCl (Zofran) 8 mg PO Q8H PRN PRN PRN Reason: NAUSEA Last Admin: 08/17/19 08:30 Dose: 8 mg Documented by: Phenobarbital (Phenobarbital) 64.8 mg PO Q4H [facility]; Taper Stop: 08/21/19 09:29 Last Admin: 08/19/19 09:32 Dose: 64.8 mg Documented by: Sodium Chloride () 10 - 40 ml IV UD PRN PRN Reason: SALINE FLUSH Last Admin: 08/18/19 00:42 Dose: 10 ml Documented by: Thiamine HCl (Vitamin B1) 100 mg PO DAILYCM [facility] Last Admin: 08/19/19 09:32 Dose: 100 mg Documented by: Trazodone HCl (Desyrel) 100 mg PO QHS PRN PRN Reason: INSOMNIA Last Admin: 08/17/19 01:17 Dose: 100 mg Documented by: Discharge Diet: Low fat/ Low Cholesterol Discharge Activity: Return to Normal Activity Weight Bearing Status: Weight bearing as tolerated Call your doctor if you observe: Shortness of breath, Dizziness Home Medications: Medications to take at Discharge Albuterol IH (ProAir) [Proair Hfa] 2 puff INHALATION Q4H PRN 07/22/19 Buspirone HCl 10 mg PO BID 07/22/19 Multivitamins,Therapeutic [Multivitamin] 1 tab PO DAILY 07/22/19 Oxycodone HCl 10 mg PO Q6H PRN PRN 07/22/19 Primary Care Physician: [facility] [Primary Care Provider] - Please follow up with your Primary Care Physician in: one week Patient Instructions: ED Withdrawal Alcohol Disposition: [facility] facility Minutes spent on discharge:: 35 Patient Condition:: Stable Medical Necessity - Tobacco Use Smoking Status: Current every day smoker Tobacco Use: Cigarettes Meaningful Use Info Meaningful Use Diagnoses (Choose all that apply): None applicable Inpatient E&M: 43133 Disch Hosp
--- NOTE | 2019-08-19 11:01 | CASEMGMT ---
Addendum entered by Uma Strauss 08/19/19 11:15: SW received call from Kelsey at [facility] stating their transportation is not running at this time. HILARIO placed a call to [facility] and spoke with transport, they are not able to do same day transport today. SW spoke with pt and updated him on above information. Pt states he has some cab money available, is not sure if he will have enough. SW spoke with field secretary and Charge Nurse. Pt is able to use hospital voucher to get to [facility]. Inspector Floor Sub Assembly to call taxi company to arrange transport for pt. Original Note: Social Work Note SW in to speak with pt to confirm discharge plans. Pt states he will just go straight to [facility] from [facility]. Pt states he has no transportation available. SW informed pt that this worker can look into transport for him for [facility]. HILARIO placed a call to Kelsey at [facility] and left message informing her that pt has now decided to go straight to [facility] from [facility] and will need transportation to [facility]. SW asked [facility] if [facility] is able to transport pt. SW waiting for call back. Inspector Floor Sub Assembly called [employer] to determine if they are still running and able to transport if need, Taxi companies are still running and able to transport. Hospital Van is not running at this time. HILARIO will called pt's [facility] [phone] to determine if they are able to transport pt today if [facility] is not able to do so. Uma Strauss DYE HOUSE SUPERVISOR, [employer] FIGHTER
[2019-08-19 12:25] VITALS: BP 136/91; PULSE 92; RESP 18; TEMP 36.9; O2SAT 97
== END 2019-08-19 12:57 | disposition home or self-care (01) | DRG 897 ==
LOC: ED 20:58 → MS3 21:52
PROVIDERS: Admitting Provider Family Medicine; Emergency Provider Emergency Medicine; Visit Provider Student in an Organized Health Care Education/Training Program
DX: F10.239 Alcohol dependence with withdrawal, unspecified (principal); Y90.8 Blood alcohol level of 240 mg/100 ml or more; F17.210 Nicotine dependence, cigarettes, uncomplicated; G89.4 Chronic pain syndrome; F41.9 Anxiety disorder, unspecified; E66.9 Obesity, unspecified; Z68.30 Body mass index [BMI] 30.0-30.9, adult
CPT/HCPCS: 71045; 71250; 80053; 80307; 80320; 81001; 84443; 84484; 85025; 87804; 87807; 93005; 97802; 99285; 99406; J7030; A4216; G0480

== ENCOUNTER 2019-09-02 20:40 | Inpatient (IN) | payer MEDICARE, MEDICAID, OTHER, SELFPAY ==
[2019-08-16 22:39] VITALS: BMI 30.2
[2019-09-02 20:41] VITALS: BP 155/102; PULSE 97; RESP 18; TEMP 35.7; O2SAT 95; BMI 30.1
--- NOTE | 2019-09-02 21:07 | ED.VIS.GEN ---
History of Present Illness Chief Complaint: Substance Abuse Informant: Patient Onset: Month(s) Maximum Severity: Mild Narrative: Coronavirus?emergency no exposures per the patient The patient presents asking for alcohol detox, he has history of alcohol abuse longstanding for many years, history of spina bifida, history of COPD, indicates basically he drinks daily last drank about an hour ago, he lives in his own home in [place] he is able to do all of his daily activities, indicates he was detoxed a few weeks ago through [facility] after the 3-day hospitalization he was sent to [facility] detox center to complete his detox however he stayed there for only few hours and left as he stated he did not wish to walk up and down stairs He then continued to drink and he has not stopped since, he has no change in his status otherwise, he basically states he would like to be admitted for 3 days here at the hospital and then discharged home after the 3-day., He is not interested in any type of outpatient detox he has physicians at the [place] who he has not seen Past Medical History - Allergies and Home Meds Allergies/Adverse Reactions: Allergies gabapentin Allergy (Verified 08/16/19 18:41) Hives pregabalin [From Lyrica] Allergy (Verified 08/16/19 18:41) Hives Primary Care Physician: [facility],[place] [Primary Care Provider] - Past Medical History: - - Includes as above Surgical History: - - Right arm surgery. Smoking Status: Current every day smoker - Family History Maternal Family History: Reports: - - Patient denies any market maternal or paternal family history including heart disease, diabetes, cancer. Paternal Family History: Reports: - - Patient denies any market maternal or paternal family history including heart disease, diabetes, cancer. Review of Systems General: Reports: - - Alcohol abuse and chronic back pain. Denies: Chills, Fever, Sweats Eyes: Denies: Visual changes - bilaterally, Diplopia ENT: Denies: Rhinorrhea, Sore throat Cardiovascular: Denies: Chest pain, Palpitations Respiratory: Denies: Dyspnea, Cough, Dyspnea on exertion Gastrointestinal: Denies: Abdominal pain, Nausea, Vomiting, Diarrhea, Melena, Hematochezia Genitourinary: Denies: Dysuria, Hematuria, Frequency Musculoskeletal: Denies: Back pain, Extremity Pain Skin: Denies: Rash, Wounds Neurological: Denies: Headache, Weakness, Numbness Physical Exam Vital Signs/Narrative: Vital Signs Temp Pulse Resp BP Pulse Ox 09/02/19 20:41 96.2 F L 97 18 155/102 H 95 General: Well nourished, Well developed, No Acute Distress, - - Is awake and alert he walked to his room without difficulty, his lungs sound clear heart tones unremarkable abdomen soft he is moving all 4 extremities Head: Normocephalic, Atraumatic Eyes: Perrl, EOMI ENT: Moist mucous membranes, No rhinorrhea Neck: Supple, Nontender Cardiovascular: Regular rate, Regular rhythm, No murmurs Respiratory: No distress, CTA bilaterally, Chest nontender Abdomen: Soft, Nontender, Nondistended, Normal bowel sounds Back: Nontender, Normal Inspection Extremities: Nontender, No edema Skin: Normal color, No rash Neurological: Alert, Oriented x3, Cranial nerves II-XII grossly intact, Normal Strength, Normal Sensation Psychological: Normal affect, Normal Mood Diagnostic/Tx/Re-eval - Medical Decision Making I had a long conversation with the patient I explained to him that basically his situation is such that he may not meet criteria for admission for detox given all the above past history and his refusal to follow-up with outpatient detox measures We will discuss his case with hospitalist coordinate his care and need for admission His care is transferred to the evening physician Admission pending discussion with hospitalist, Final impression alcohol abuse with noncompliance history of spina bifida ED Disposition - Plan for ED Patient: Diagnosis: Alcoholism /alcohol abuse [facility] [Primary [facility] Provider] -
--- NOTE | 2019-09-02 22:30 | HP.PCM_ITS ---
Problem List (1) Alcohol withdrawal Status: Acute Qualifiers: Complication of substance-induced condition: with unspecified complication Qualified Code(s): F10.239 - Alcohol dependence with withdrawal, unspecified (2) Alcoholism /alcohol abuse Status: Chronic (3) Tobacco use Status: Chronic (4) Anxiety Status: Chronic (5) Obesity Status: Chronic Qualifiers: Obesity type: unspecified obesity type Obesity classification: adult class 1 (BMI 30 - 34.9) Body mass index: BMI 30.0-30.9 (6) Chronic pain syndrome Status: Chronic History of Present Illness Date of Admission: 09/02/19 Chief Complaint: Acute EtOH Withdrawal The patient is a 58 y/o M w/ PMHx: Tobacco use, Chronic leg pain, Anxiety, EtOH Abuse (at last 3-25 ounce cans beer daily), Hx DUI now x 2 most recently discharged from acute inpatient detoxification program at [facility] on 07/28/19 and prior to this was admitted 07/22/19 with discharge 07/28/19, noting that he most recently was not able to last at [facility] program as he was on the 3rd floor and notes that he was not able to walk up and down the stairs prompting him to leave upon which he immediately restarted drinking with attempts again per himself to decrease his intake, last drink 2 tall boys ~ 12 hours prior he notes nausea, tremors, agitation, tactile disturbances. Patient interested in attaining sober status but does admit that he has difficulties having treatment at [facility] and specifically states he does best inpatient but discussed at length his need to appropriate transition from inpatient hospitalization to alternate program following as only maintaining sobriety x 1 month at a time at the longest. No ED labs were obtained, requested CBC, CMP, mag, phos, UDS, EtOH level per [facility] orders. Given serial presentations and chronic pain, may need to consider malingering in the future. Past Medical History Past Medical History (Chronic Problems): Chronic Problems Alcoholism /alcohol abuse (Chronic) Tobacco use (Chronic) Anxiety (Chronic) Obesity (Chronic) Chronic pain syndrome (Chronic) Allergies gabapentin Allergy (Verified 08/16/19 18:41) Hives pregabalin [From Lyrica] Allergy (Verified 08/16/19 18:41) Hives Home Medications: Ambulatory Orders Medication Instructions Recorded Albuterol IH (ProAir) [Proair Hfa] 2 puff INHALATION Q4H PRN 07/22/19 Buspirone HCl 10 mg PO BID 07/22/19 Multivitamins,Therapeutic 1 tab PO DAILY 07/22/19 [Multivitamin] Oxycodone HCl 10 mg PO Q6H PRN PRN 07/22/19 Surgical History: - - Right arm surgery. Psychiatric History: Anxiety Lives: Alone Smoking Status: Current every day smoker - Patient with cigarette tobacco usage of approximately 1 pack/day Tobacco Use: Cigarettes Alcohol: Heavy - 3-6, 25 ounce beers daily. Drugs: None - *Family History Maternal History Items: - - Patient denies any market maternal or paternal family history including heart disease, diabetes, cancer. Paternal History Items: - - Patient denies any market maternal or paternal family history including heart disease, diabetes, cancer. Review of Systems Constitutional: Reports: Anorexia, Malaise, Weakness, Fatigue. Denies: Chills, Fever, Weight Change HEENT: Denies: Head Aches, Sinus Congestion, Sinus Drainage Cardiovascular: Denies: Chest Pain, Palpitations Respiratory: Denies: Cough, Shortness of breath at rest, Sputum production Gastrointestinal: Reports: Nausea. Denies: Abdominal Pain, Vomiting Genitourinary: Denies: Dysuria Musculoskeletal: Reports: Arm Pain, Back Pain, Joint Pain. Denies: Joint Tenderness Skin: Denies: Rash, Wounds Neurological: Reports: Tremor. Denies: Focal weakness, Numbness, Tingling Psychiatric: Reports: Anxiety, Depression. Denies: Homicidal Ideations, Suicidal Ideations Hematologic/ Lymphatic: Reports: Anemia. Denies: Easy Bruising, Easy Bleeding VTE Information - Inpt Only VTE Present on Admission: No VTE Mechan Device Prophylaxis: None VTE Pharm Prophylaxis ordered?: No Reason prophylaxis not ordered:: Treatment Not Indicated Subjective: Seated upright in the bed, fatigued appearance, mild tremors, no obvious distress. Objective: Physical Examination: General: awake, alert, oriented x 3 and currently cooperative, seated upright in the ED bed, mild tremors, no obvious distress. Skin: normal color, turgor, no icterus, cyanosis. HEENT: AT/NC, EOMI, PERRLA, mildly dry MM, no carotid bruits or JVD noted. Lungs: CTA bilaterally, moderate effort, moderate decrease BL bases, no rales, ronchi or wheezing. Heart: Mildly tachycardic with regular rhythm; no gallop, rub audible. Abdomen: soft, obese, NTTP, ND, normal BS, no HSM. Extremities: no cyanosis, clubbing, or edema. Neurological: patient awake, alert, oriented x 3; cognitive function appears suspected baseline intact; pupils equally reactive to light and accomodation; cranial nerves II-XII grossly normal, moving all 4 extremities, no focal deficits, strength mild to moderately global decrease secondary to acute presentation mild tremor present. Psychiatric: affect appears labile, no acute evidence of depressive or anxiety feelings. - Physical Exam Vitals/I&O's: Vital Signs Temp Pulse Resp BP Pulse Ox 96.2 F L 97 18 155/102 H 95 09/02/19 20:41 09/02/19 20:41 09/02/19 20:41 09/02/19 20:41 09/02/19 20:41 Oxygen Delivery Method Room Air Weight: 198 lb Body Mass Index (BMI) 30.1 Assessment/Plan All Active Problems Admitted to substance misuse detoxification center (Acute) Alcohol withdrawal (Acute) The patient is a 58 y/o M w/ PMHx: Tobacco use, Chronic leg pain, Anxiety, EtOH Abuse, Hx DUI now x 2 most recently discharged from acute inpatient detoxification program at [facility] on 07/28/19 and prior to this was admitted 07/22/19 with discharge 07/28/19, noting that he most recently was not able to last at [facility] program as he was on the 3rd floor and notes that he was not able to walk up and down the stairs prompting him to leave upon which he immediately restarted drinking with attempts again per himself to decrease his intake, last drink 2 tall boys ~ 12 hours. 1. Acute EtOH Withdrawal: Will admit to [facility], will obtain routine labs as noted including CBC, CMP, UDS, EtOH level. Given ongoing interest in sobriety, will initiate and continue on protocol with taper course of Phenobarbital, will not order gabapentin for seizure prophylaxis as patient with significant allery, will have as needed Catapres, Bentyl, Vistaril, IV fluids, IV antiemetics, Tylenol as needed for pain. Will consult Case management for assistance for transition to next level of rehabilitation care as patient with ongoing issues it appears with [facility]. Mag, phos pending. Maintain on CIWA protocol concurrently. 2. Anxiety: We will continue patient home BuSpar regimen but would benefit from consideration SSRI/SNRI additionally. 3. Chronic pain syndrome: We will continue patient home chronic oxycodone regimen. 4. GERD: Maintain on famotidine. 5. Obesity: Weight loss and lifestyle changes encouraged. 6. Tobacco Abuse: Encouraged cessation, inpatient consultation per RT, NR if desired. 7. DVT prophylaxis: Low risk, encourage ambulation. Inpatient E&M: 19092 Init Hosp L3
[2019-09-02 23:46] VITALS: BP 150/90; PULSE 97; RESP 18; TEMP 35.8; O2SAT 97
[2019-09-03 00:10] VITALS: BP 149/104; PULSE 91; RESP 18; TEMP 36.4; O2SAT 95
[2019-09-03 00:19] LABS: Absolute Lymphocyte Count 1.42 X10^3/uL (0.83-4.51); Basophil# 0.06 X10^3/uL; Basophil% 1.4 % (0-1); Eosinophil# 0.25 X10^3/uL; Hematocrit 45.3 % (40-54); Hemoglobin 15.6 g/dL (13.0-16.5); Lymphocyte # 1.42 X10^3/ul (4.0); Lymphocyte % 34.2 % (19-41); Mean Corp Hgb Conc 34.4 g/dL (32-36); Mean Corpuscular Hgb 31.7 pg (27.0-32.0); Mean Corpuscular Volume 92.1 fL (80-94); Mean Platelet Vol. 9.5 fl (6.2-12.0); Monocyte# 0.42 X10^3/uL; Monocyte% 10.1 % (0-10); NRBC Flagged by Analyzer 0 % (0-5); Neutrophil # 1.99 X10^3/uL (2.7-7.7); Neutrophil % 48.1 % (47-70); Platelet Count 193 K/mm3 (150-450); RBC Distribution Width CV 13.1 % (11.6-14.6); RBC Distribution Width SD 44.3 fl (35.1-43.9); Red Blood Count 4.92 M/mm3 (4.6-6.2); White Blood Count 4.2 K/mm3 (4.4-11.0)
[2019-09-03 00:24] VITALS: BMI 29.7
[2019-09-03 00:29] LABS: ALB/GLOB Ratio 1.2 RATIO (0.9-2.4); AST(SGOT) 74 U/L (15-37); Alanine Aminotransfer ALT/SGPT 49 U/L (16-61); Alkaline Phosphatase 132 U/L (45-117); Anion Gap 10 (5-15); BUN 4 mg/dL (7-18); BUN/Creat Ratio 7.4 RATIO (10-20); Calcium,Total 8.7 mg/dL (8.5-10.1); Chloride 103 mmol/L (98-107); Creatinine, Serum 0.54 mg/dL (0.70-1.30); EST Glomerular Filtration Rate 164 mL/min (>60); Est Glom Filt Rate - Afr Amer 199 mL/min (>60); Estimated Creatinine Clearance 144.26 ml/min; Globulin 3.3 g/dL (2.2-4.2); Glucose 81 mg/dL (74-106); Magnesium 2.2 mg/dL (1.6-2.6); Potassium 3.4 mmol/L (3.5-5.1); Protein, Total 7.3 g/dL (6.4-8.2); Sodium Level 138 mmol/L (136-145)
[2019-09-03 00:41] VITALS: BMI 29.7
[2019-09-03 00:49] VITALS: BP 158/96
[2019-09-03] MEDS: Phenobarbital 32.4 MG Tablet 97.2 MG PO ×4 (01:03→13:22)
[2019-09-03] MEDS: 0.9% Saline Lock 10 ML Syringe IV (01:19)
[2019-09-03] MEDS: Lactated Ringers 1,000 ML 125 ML IV (01:29)
[2019-09-03 02:03] LABS: Amphetamine Urine VISTA NEGATIVE (<1000 ng/mL); Barbiturate Urine VISTA POSITIVE (< 200 ng/mL); Benzodiazepine Urine VISTA NEGATIVE (< 200 ng/mL); Cocaine Urine VISTA NEGATIVE (< 300 ng/mL); Ecstacy Urine VISTA NEGATIVE (< 500 ng/mL); Methadone Urine VISTA NEGATIVE (< 300 ng/mL); PCP Urine VISTA NEGATIVE (< 25 ng/mL); THC Urine VISTA NEGATIVE (< 50 ng/mL); Vista UDS pH Range 6
[2019-09-03 05:02] VITALS: BP 129/69; PULSE 102; RESP 18; TEMP 36.9
[2019-09-03] MEDS: hydrOXYzine PAM 25 MG Capsule 50 MG PO (09:30)
[2019-09-03] MEDS: Thiamine Hydrochloride 100 MG Tablet PO (09:30)
[2019-09-03] MEDS: Folic Acid 1 MG Tablet PO (09:30)
--- NOTE | 2019-09-03 09:39 | CASEMGMT ---
Social Work Pt admitted for Alcohol withdrawal. Pt d/c from [facility] 08/19/19 to [facility] residential program. Per H&P pt left [facility] recently and returned home and started drinking again. HILARIO spoke with Kelsey at [facility] who is familiar with pt and Kelsey will followup. JUAN Mazariegos
[2019-09-03 10:00] VITALS: BP 132/73; PULSE 93; RESP 18; TEMP 36.3
--- NOTE | 2019-09-03 11:24 | ADDICTION ---
This junior underwriter met with patient in his room. He reported that he plans to discharge to his home and was unwilling to process discharge planning with this junior underwriter. He reported that he is getting a ride now. This junior underwriter offered to research residential treatment facilities in the area, patient declined. This junior underwriter offered outpatient services, patient declined. Patient stated I'll be fine at home. ASAM LOC Recommendation: Medically Managed Intensive Inpatient Dimension1: Acute Intoxication and Withdrawal Potential Patient reports last date of use 09/03/2019. Presents with tremors, agitation, restlessness. Reports history of high blood pressure during withdrawal, insomnia, disorientation, nausea and vomiting. Currently engaging in medical withdrawal management. Dimension2: Biomedical Conditions and Concerns Reports prior diagnosis of Spina Biffida, reports chronic pain. Currently experiencing tremors in hands due to W/D. Reports no other medical barriers Dimension3: Emotional, Behavioral or Cognitive Conditions and Complications Patient is alert and oriented x4, however, appears to have some cognitive barriers and limited intellectual functioning. Reports history of depression, untreated. Patient does not connect to depression to addiction. Patient may benefit from MH treatment concurrently with AoD treatment. It is unclear if patient is able to manage ADLs. Dimension4: Readiness to Change Patient does not appear to to fully understand the relationship of alcohol use and negative consequence. Patient is in the precontemplation stage of change as evidenced by his lack of understanding of Dimension5: Dimension6:
--- NOTE | 2019-09-03 11:43 | ADDICTION ---
09/03/19 11:24 - Addiction Medicine by Kelsey Brooks [facility] Num: [id number] : [id number] Patient Age: 58 This radio news writer met with patient in his room. He reported that he plans to discharge to his home and was unwilling to process discharge planning with this radio news writer. He reported that he is getting a ride now. This radio news writer offered to research residential treatment facilities in the area, patient declined. This radio news writer offered outpatient services, patient declined. Patient stated I'll be fine at home. ASAM LOC Recommendation: Medically Managed Intensive Inpatient Dimension1: Acute Intoxication and Withdrawal Potential Patient reports last date of use 09/03/2019. Presents with tremors, agitation, restlessness. Reports history of high blood pressure during withdrawal, insomnia, disorientation, nausea and vomiting. Currently engaging in medical withdrawal management. Dimension2: Biomedical Conditions and Concerns Reports prior diagnosis of Spina Biffida, reports chronic pain. Currently experiencing tremors in hands due to W/D. Reports no other medical barriers Dimension3: Emotional, Behavioral or Cognitive Conditions and Complications Patient is alert and oriented x4, however, appears to have some cognitive barriers and limited intellectual functioning. Reports history of depression, untreated. Patient does not connect to depression to addiction. Patient may benefit from MH treatment concurrently with AoD treatment. It is unclear if patient is able to manage ADLs. Dimension4: Readiness to Change Patient is in the precontemplation stage of change as evidenced by his lack of understanding of the relationship of his alcohol use and negative consequences. Patient does not appear to be willing to engage in treatment and stated that he plans to go home once he finds transportation. Patient was unable to identify his reasoning for admitting into the hospital for medical withdrawal management. Dimension5: Relapse, Continued Use or Continued Problem Potential Patient is at a high risk of relapse. Patient has been engaged in medical withdrawal management multiple times followed by relapse. Patient reports limited coping skills and low desire to stop using alcohol. Client will likely continue to use alcohol if he does not complete medical withdrawal management and engage in ongoing treatment. Dimension6: Recovery or Living Environment Patient reports that he lives independently and gets services from Home Health. Patient reports one friend who supports his sobriety. Patient does not identify other social supports. Patient involved with Probation.
--- NOTE | 2019-09-03 13:41 | DCINST_ITS ---
- Discharge Diagnoses Current Active Problems: Current Active and Chronic Problems Alcoholism /alcohol abuse (Chronic) You will use the following diet at home:: No restrictions Your food should be the consistency of: Regular Your liquids should be the consistency of: Regular/Thin Discharge Activity: Return to Normal Activity Weight Bearing Status: Full weight bearing Additional Instructions: do not drink Allergies/Adverse Reactions: Allergies gabapentin Allergy (Verified 08/16/19 18:41) Hives pregabalin [From Lyrica] Allergy (Verified 08/16/19 18:41) Hives Medications to take at Discharge Albuterol IH (ProAir) [Proair Hfa] 2 puff INHALATION Q4H PRN 07/22/19 Buspirone HCl 10 mg PO BID 07/22/19 Multivitamins,Therapeutic [Multivitamin] 1 tab PO DAILY 07/22/19 Oxycodone HCl 10 mg PO Q6H PRN PRN 07/22/19 Primary Care Physician: [facility],[place] [Primary Care Provider] - Please follow up with your Primary Care Physician in: call for appointment Test Results: Test results from this visit will be discussed in further detail at your follow- up appointment, if applicable.
--- NOTE | 2019-09-03 14:27 | CHAPLAIN ---
Type of Pastoral Visit _x__ Initial Visit ___ Follow-up Visit ___ On-call Visit ___ General Patient Visit ___ Spiritual Assessment ___ Family Conference ___ Bereavement ___ Rapid Response ___ Code Blue ___ Other (describe below) Pastoral Care Referral From _x__ Patient ___ Family ___ Nurse ___ Physician ___ Equipment Inspector ___ Truck Spotter ___ Other (describe below) Sacrament/Intervention _x__ Active listening ___ Anointing ___ Scientologist ___ Bereavement ___ Communion ___ Ling exploration ___ ___ Life review _x__ Prayer ___ Reconciliation ___ Sacrament of Sick ___ Supportive presence ___ Wedding ___ Other (describe below) Pastoral Comments patient has been admitted before and has had conversation with this dispatcher service chief; pt states that he did not stay at [facility] as was planned for last discharge; pt stated he went home and continued to drink; pt states that he is not going into treatment but will go home; when asked about a plan to stop alcohol drinking the patient does not have one except to say I'll just stop; pt did welcome visit and prayer of dispatcher service chief
[2019-09-03 14:36] VITALS: BP 137/66; PULSE 87; RESP 18; TEMP 37.2; O2SAT 98
--- NOTE | 2019-09-03 15:57 | PCM.DC.SUM ---
Discharge Date and Diagnosis Date of Admission: 09/02/19 Date of Discharge: 09/03/19 - Primary Discharge Diagnosis #1 acute alcohol withdrawal #2 noncompliance with medical regimen #3 chronic alcoholism - Secondary Discharge Diagnosis Chronic Problems Alcoholism /alcohol abuse (Chronic) Tobacco use (Chronic) Anxiety (Chronic) Obesity (Chronic) Chronic pain syndrome (Chronic) Hospital Course and Treatment Operations: None Procedures: None Summary of Care Provided: The patient is a 58 year old M was seen in the emergency room at [facility] with intention of undergoing alcohol detox, patient has been through alcohol detox many times before. Patient was admitted to PCU, the following morning the patient told this examiner that he had no intention of following up with [facility] as an outpatient and that he might as well go home. One of the nurses aides was told by the patient that he had no intention of stopping his alcohol consumption. Patient decided that he wanted to be discharged home, I requested that he sign out AMA. 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 account services associate was able to locate transportation for the patient to be discharged home. On 09/03/2019, patient was seen and examined: On examination he appeared older than his stated age. Vital signs as documented. Skin warm and dry and without overt rashes. Neck without JVD, neck was supple, trachea midline, thyroid was normal. Lungs clear bilaterally, normal air movement was noted. Heart exam notable for regular rhythm, normal sounds and absence of murmurs, rubs or gallops. Abdomen unremarkable and without evidence of organomegaly, masses, or abdominal aortic enlargement. Bowel sounds are present, abdomen is not distended. Extremities nonedematous, no cyanosis was noted, no clubbing was noted. Neuro: Cranial nerves II through XII are grossly intact, no focal motor deficits were noted, sensation to light touch and pinprick intact, motor exam 5/5 throughout. Psych: Patient is alert and oriented x3, he does not appear anxious or depressed, he does not appear agitated. Patient was discharged home on 09/03/2019, this examiner does not feel the patient was genuine in his wish to undergo alcohol detox, I am not quite sure why the patient decided to come to the hospital if he was not going to follow up with outpatient treatment. This examiner also suspects patient has an underlying psychiatric disorder-type unknown-as evidenced by his behavior. - Physical Exam Vitals/I&O's: Vital Signs Temp Pulse Resp BP Pulse Ox 98.9 F 87 18 137/66 H 98 09/03/19 14:36 09/03/19 14:36 09/03/19 14:36 09/03/19 14:36 09/03/19 14:36 Oxygen Delivery Method Room Air Weight: 88.587 kg Body Mass Index (BMI) 29.7 Intake and Output for Last 24 Hours 09/01/19 09/02/19 09/03/19 23:59 23:59 23:59 Intake Total 2210 / 2210 Output Total 600 / 600 Balance 1610 / 1610 Laboratory Results 09/02/19 23:12: WBC 4.2 L, RBC 4.92, Hgb 15.6, Hct 45.3, MCV 92.1, MCH 31.7, MCHC 34.4, RDW Std Deviation 44.3 H, RDW Coeff of Maren 13.1, Plt Count 193, MPV 9.5, Immature Gran % (Auto) 0.200, Neut % (Auto) 48.1, Lymph % (Auto) 34.2, [place] % (Auto) 10.1 H, Eos % (Auto) 6.0 H, Baso % (Auto) 1.4 H, Absolute Neuts (auto) 2.0, Absolute Lymphs (auto) 1.42, Nucleated RBC % 0 09/02/19 23:12: Sodium 138, Potassium 3.4 L, Chloride 103, Carbon Dioxide 25.0, Anion Gap 10, BUN 4 L, Creatinine 0.54 L, Estim Creat Clear Calc 144.26, Est GFR (MDRD) Af Amer 199, Est GFR (MDRD) Non-Af 164, BUN/Creatinine Ratio 7.4 L, Glucose 81, Calcium 8.7, Phosphorus 3.0, Magnesium 2.2, Total Bilirubin 0.40, AST 74 H, ALT 49, Alkaline Phosphatase 132 H, Total Protein 7.3, Albumin 4.0, Globulin 3.3, Albumin/Globulin Ratio 1.2 09/02/19 23:12: Ethyl Alcohol 297.0 09/03/19 01:30: Urine Opiates Screen NEGATIVE, Urine Methadone Screen NEGATIVE, Ur Barbiturates Screen POSITIVE H, Ur Phencyclidine Scrn NEGATIVE, Ur Amphetamines Screen NEGATIVE, U Methamphetamin-MDMA NEGATIVE, U Benzodiazepines Scrn NEGATIVE, Urine Cocaine Screen NEGATIVE, U Cannabinoids Screen NEGATIVE, Ur Drug Screen Comment Current Medications Acetaminophen (Tylenol) 500 mg PO Q4H PRN PRN PRN Reason: Temp > 100.4 F Albuterol Sulfate (Ventolin Aerosols) 2.5 mg INHALATION Q2H PRN PRN PRN Reason: Dyspnea, wheezing Dicyclomine HCl (Bentyl) 20 mg PO Q6H PRN PRN PRN Reason: abdominal discomfort Folic Acid (Folic Acid) 1 mg PO DAILY@0800 [facility] Last Admin: 09/03/19 09:30 Dose: 1 mg Documented by: Sodium Chloride () 250 mls @ 15 mls/hr IV .[id number] PRN PRN Reason: Saline Flush Ibuprofen (Motrin) 600 mg PO Q8H PRN PRN PRN Reason: Pain Score 1-10/10 Loperamide HCl (Imodium) 2 mg PO Q4H PRN PRN PRN Reason: LOOSE STOOLS Nicotine (Nicoderm Cq (Pbkc)) 21 mg TRANSDERM. DAILY [facility] Last Admin: 09/03/19 09:30 Dose: 21 mg Documented by: Ondansetron HCl (Zofran) 8 mg PO Q8H PRN PRN PRN Reason: NAUSEA Phenobarbital (Phenobarbital) 97.2 mg PO Q4H [facility]; Taper Stop: 09/07/19 05:59 Last Admin: 09/03/19 13:22 Dose: 97.2 mg Documented by: Sodium Chloride () 10 - 40 ml IV UD PRN PRN Reason: SALINE FLUSH Last Admin: 09/03/19 01:19 Dose: 10 ml Documented by: Thiamine HCl (Vitamin B1) 100 mg PO DAILYCM [facility] Last Admin: 09/03/19 09:30 Dose: 100 mg Documented by: Discharge Activity: Return to Normal Activity Weight Bearing Status: Full weight bearing Home Medications: Medications to take at Discharge Albuterol IH (ProAir) [Proair Hfa] 2 puff INHALATION Q4H PRN 02/27/20 Buspirone HCl 10 mg PO BID 07/22/19 Multivitamins,Therapeutic [Multivitamin] 1 tab PO DAILY 07/22/19 Oxycodone HCl 10 mg PO Q6H PRN PRN 07/22/19 Primary Care Physician: [facility] [Primary Care Provider] - Please follow up with your Primary Care Physician in: call for appointment Disposition: Home Minutes spent on discharge:: 31 Patient Condition:: Stable Medical Necessity - Tobacco Use Smoking Status: Current every day smoker Tobacco Use: Cigarettes Meaningful Use Info Meaningful Use Diagnoses (Choose all that apply): None applicable Inpatient E&M: 12651 Disch Hosp
== END 2019-09-03 16:07 | disposition left against medical advice (07) | DRG 894 ==
LOC: ED 21:20 → PCU 23:25
PROVIDERS: Admitting Provider Family Medicine; Emergency Provider Emergency Medicine; Visit Provider Internal Medicine
DX: F10.239 Alcohol dependence with withdrawal, unspecified (principal); Z91.19 Patient's noncompliance with other medical treatment and regimen; Q05.9 Spina bifida, unspecified; J44.9 Chronic obstructive pulmonary disease, unspecified; F41.9 Anxiety disorder, unspecified; E66.9 Obesity, unspecified; G89.4 Chronic pain syndrome; F17.210 Nicotine dependence, cigarettes, uncomplicated; Z68.30 Body mass index [BMI] 30.0-30.9, adult; K21.9 Gastro-esophageal reflux disease without esophagitis; Z79.899 Other long term (current) drug therapy; Z79.891 Long term (current) use of opiate analgesic
CPT/HCPCS: 80053; 80307; 80320; 83735; 84100; 85025; 99283; J7120; A4216; G0480